=== PATIENT | male | born 1955 | race Caucasian/White ===

== ENCOUNTER 2018-03-12 08:08 | Emergency (ER) | payer BC ==
[2018-03-12] MEDS ORDERED: Lidocaine 2% EPI 1:200000 MPF*10-20 ML VIAL ONE (08:38)
[2018-03-12] MEDS ORDERED: Lidocaine 2% EPI 1:200000 MPF*10-20 ML VIAL INJ ONE (08:38)
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
[2018-03-12] MEDS ORDERED: Gelfoam 12-7 ADSORBABL SPONGE* 1 EA SPONGE ONE (08:46)
[2018-03-12 08:48] LABS: ABS Basophils 0 10^3/ul (0-0.2); ABS Eosinophils 0.1 10^3/ul (0-0.6); ABS Lymphocytes 1.6 10^3/ul (1.0-4.8); ABS Monocytes 0.8 10^3/ul (0-0.8); ABS Neutrophils 4.8 10^3/ul (1.5-7.7); ABS Nucleated RBC 0 10^3/ul; Eosinophil % 0.8 % (0-6); Hematocrit 41 % (42-52); Hemoglobin 14.1 g/dl (14.0-18.0); Lymphocyte % 21.7 % (25-47); Mean Corpuscular HGB Conc 35 g/dl (31-36); Mean Corpuscular Hemoglobin 33 pg (27-31); Mean Corpuscular Volume 95 fL (80-94); Mean Platelet Volume 7.2 um3 (7.4-10.4); Nucleated Red Blood Cells % 0; Platelet Count 177 10^3/ul (150-450); Red Blood Count 4.27 10^6/ul (4.00-5.40); Red Cell Distribution Width 13 % (10.5-15); White Blood Count 7.2 10^3/ul (3.5-10.8)
--- NOTE | 2018-03-12 09:07 | RAD ---
HISTORY: hematemesis COMPARISONS: None VIEWS: 1: frontal AP view of the chest at 8:50 AM FINDINGS: LINES AND TUBES: None. CARDIOMEDIASTINAL SILHOUETTE: The cardiomediastinal silhouette is normal for portable technique. PLEURA: The costophrenic angles are sharp. No pleural abnormalities are noted. LUNG PARENCHYMA: The lungs are clear. ABDOMEN: The upper abdomen is clear. There is no subphrenic gas. BONES AND SOFT TISSUES: There is remote posttraumatic deformity to the left hemithorax. IMPRESSION: NO ACTIVE CARDIOPULMONARY DISEASE.
[2018-03-12 09:25] LABS: INR 5.82 (0.77-1.02)
[2018-03-12 09:35] LABS: EGFR Non-African American 113.5 (>60)
[2018-03-12 10:03] VITALS: BP 168/92
== END 2018-03-12 10:03 | disposition home or self-care (01) ==
LOC: ED 08:08
DX: S01.511A Laceration without foreign body of lip, initial encounter (principal); W50.3XXA Accidental bite by another person, initial encounter; Y92.9 Unspecified place or not applicable; J44.9 Chronic obstructive pulmonary disease, unspecified; R79.1 Abnormal coagulation profile; I45.10 Unspecified right bundle-branch block; T45.515A Adverse effect of anticoagulants, initial encounter
CPT/HCPCS: 12011; 36415; 71045; 80053; 85025; 85610; 86850; 86900; 86901; 93005; 99282; A9270-GY

== ENCOUNTER 2018-05-06 17:21 | Emergency (ER) | payer BC ==
--- OUTSIDE RECORDS SUMMARY | 2018-05-06 17:36 | XMS REPORT | Continuity of Care Document ---
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 Payers Description No Information Available Advance Directives Description No Information Available Problems Description No Information Family History Description No Information Available Social History Type Date Description Comments Sex Unknown ETOH Use Never used alcohol Tobacco Use Start: Unknown Patient has never smoked Smoking Status Reviewed: 05/04/18 Patient has never smoked Allergies, Adverse Reactions, Alerts Date Description Reaction Status Severity Comments 05/04/2018 Nexium Active Medications Medication Date Status Form Strength Qnty SIG Indications Ordering Provider Cinda 05/04/20 Active Gel 0.15% 5gm apply to Ramo 18 ocular Tejada, OD surface 5x/day x 1 week right eye Pred Forte 05/04/20 Active Suspension 1% 10ml 1 drops Ramo 18 right eye Tejada, OD four times a day x 1 week, then taper as directed Valtrex 00/00/ Active Tablets 1gm 1 tablet by Unknown 00 mouth two times a day Immunizations Description No Information Available Vital Signs Description No Information Available Results Description No Information Available Procedures Description No Information Available Encounters Description No Information Available Plan of Treatment Future Appointment(s):05/07/2018 11:30 am - Ramo Tejada OD at Main [id number] - Ramo Tejada [id number] Zoster keratitisFollow up:3 days f/u, sooner PRN
--- NOTE | 2018-05-06 19:26 | ED ---
Skin Complaint - HPI Summary HPI Summary: This patient is a 63 year old M presenting to [facility] with a chief complaint of increasing pain due to his shingles on the right side of his face. Pt states he was seen at and optometry 3 days ago for his shingles and received eye drops and medication that he has been taking since. The patient rates the pain 8/10 in severity. Pt states he is having bloody nasal discharge when blowing his nose and is concerned that his shingles may be spreading into the left side of his face. He denies any visual changes. He when to the today for the increasing pain and they suggested he come to the ED. He is unsure what oral medication he is taking but he is taking Zirgan and prednisone acetate drops into the eye. - History of Current Complaint Chief Complaint: EDRashSkinAbscess Time Seen by Provider: 05/06/18 19:12 Stated Complaint: POSS SHINGLES Hx Obtained From: Patient Onset/Duration: Started Days Ago, Still Present Skin Exposure Onset/Duration: Days Ago Timing: Constant Onset Severity: Moderate Current Severity: Severe Pain Intensity: 8 Pain Scale Used: 0-10 Numeric Skin Location: Face Associated Signs & Symptoms: Negative - visual changes - Allergy/Home Medications Allergies/Adverse Reactions: Allergies Allergy/AdvReac Type Severity Reaction Status Date / Time esomeprazole [From Nexium] Allergy Dizziness Verified 05/06/18 17:25 PMH/Surg Hx/FS Hx/Imm Hx Respiratory History: Reports: Hx Chronic Obstructive Pulmonary Disease (COPD) Musculoskeletal History: Reports: Other Musculoskeletal History - herniated disc Sensory History: Denies: Hx Deafness Neurological History: Reports: Other Neuro Impairments/Disorders - Narcolepsy and shingles - Surgical History Surgery Procedure, Year, and Place: hip replacement, skull fracture, shoulder repair Infectious Disease History: No Infectious Disease History: Denies: Traveled Outside the [place] in Last 30 Days - Family History Known Family History: Positive: Diabetes Negative: Hypertension - Social History Alcohol Use: None Substance Use Type: Reports: None Hx Tobacco Use: No Smoking Status (MU): Unknown if Ever Smoked Review of Systems Negative: Blurred Vision ENT: Other - bloody d/c Positive: Other - shingles All Other Systems Reviewed And Are Negative: Yes Physical Exam - Summary Physical Exam Summary: VITAL SIGNS: Reviewed. GENERAL: Patient is a well-developed and nourished male who is lying comfortable in the stretcher. Patient is not in any acute respiratory distress. HEAD AND FACE: No signs of trauma. No ecchymosis, hematomas or skull depressions. No sinus tenderness. EYES: PERRLA, EOMI x 2, No injected conjunctiva, no nystagmus. EARS: Hearing grossly intact. Ear canals and tympanic membranes are within normal limits. MOUTH: Oropharynx within normal limits. NECK: Supple, trachea is midline, no adenopathy, no JVD, no carotid bruit, no c- spine tenderness, neck with full ROM. CHEST: Symmetric, no tenderness at palpation LUNGS: Clear to auscultation bilaterally. No wheezing or crackles. CVS: Regular rate and rhythm, S1 and S2 present, no murmurs or gallops appreciated. ABDOMEN: Soft, non-tender. No signs of distention. No rebound no guarding, and no masses palpated. Bowel sounds are normal. EXTREMITIES: FROM in all major joints, no edema, no cyanosis or clubbing. NEURO: Alert and oriented x 3. No acute neurological deficits. Speech is normal and follows commands. SKIN: there is a vesicular rash on the right side of the face and the right forehead as well as on the eye lid. It is not spreading in to the conjunctiva or the cornea. Triage Information Reviewed: Yes Vital Signs On Initial Exam: Initial Vitals Temp Pulse Resp BP Pulse Ox 98.3 F 108 16 118/78 92 05/06/18 17:25 05/06/18 17:25 05/06/18 17:25 05/06/18 17:25 05/06/18 17:25 Vital Signs Reviewed: Yes Diagnostics - Vital Signs Vital Signs Temp Pulse Resp BP Pulse Ox 05/06/18 17:25 98.3 F 108 16 118/78 92 - Laboratory Lab Statement: Any lab studies that have been ordered have been reviewed, and results considered in the medical decision making process. Course/Dx - Course Assessment/Plan: This patient is a 63 year old M presenting to [facility] with a chief complaint of increasing pain due to his shingles on the right side of his face. Dx shingles. In the ED course the patient was given Valtrex, gabapentin , and Percocet. The patient reports decreased pain with these medications. We discussed patient care with Dr Acevedo and he suggested Neurontin and Percocet for pain. He also stated that in there is no corneal or conjunctival involvement the patient would not benefit from IV valacyclovir. He suggested the patient see him in his office in the morning. Patient will be discharged. The patient is agreeable with this plan. - Diagnoses Provider Diagnoses: Shingles - Physician Notifications Discussed Care Of Patient With: Jerome Acevedo Time Discussed With Above Provider: 19:47 Instructed by Provider To: Other - We discussed patient care with Dr Acevedo and he suggested Neurontin and Percocet for pain. He also stated that in there is no corneal or conjunctival involvement the patient would not benefit from IV valacyclovir. He suggested the patient see him in his office in the morning. Discharge - Sign-Out/Discharge Documenting (check all that apply): Patient Departure - Discharge Plan Condition: Stable Disposition: HOME Prescriptions: Gabapentin CAP(*) [Neurontin 300 CAP(*)] 300 mg PO TID #30 cap oxyCODONE/Acetamin 5/325 MG* [Percocet 5/325 TAB*] 1 tab PO Q6H PRN #20 tab MDD 4 PRN Reason: Pain Patient Education Materials: Jenny (ED) Referrals: Jerome Acevedo MD [Medical Doctor] - Adolfo Wooten MD [Primary Care Provider] - Additional Instructions: Continue taking the medications you have prescribed. Please contact Dr. Acevedo at 8 AM tomorrow. RETURN TO THE EMERGENCY DEPARTMENT FOR CHANGING OR WORSENING SYMPTOMS - Attestation Statements Document Initiated by Scribe: Yes Documenting Scribe: Jas Redman Provider For Whom Scribe is Documenting (Include Credential): Xochitl Burrows MD Scribe Attestation: I, Jas Redman , scribed for Xochitl Burrows MD on 05/06/18 at 7018. Status of Scribe Document: Ready
[2018-05-06] MEDS ORDERED: oxyCODONE/Acetamin 5/325 MG* TAB PO ONE (19:28)
[2018-05-06] MEDS ORDERED: ValACYclovir (*) 1 GM TAB PO ONE (19:45)
[2018-05-06] MEDS ORDERED: Gabapentin CAP(*) 300 MG PO ONE (19:45)
[2018-05-06 22:06] VITALS: BP 126/78
== END 2018-05-06 22:05 | disposition home or self-care (01) ==
LOC: ED 17:21
DX: B02.9 Zoster without complications (principal); J44.9 Chronic obstructive pulmonary disease, unspecified
CPT/HCPCS: 99282; A9270-GY

== ENCOUNTER 2018-06-04 17:31 | Emergency (ER) | payer BC ==
--- OUTSIDE RECORDS SUMMARY | 2018-06-04 17:39 | XMS REPORT | Continuity of Care Document ---
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 Payers Type Date Identification Numbers Payment Provider Subscriber Policy Number: [id number] CHAUNCEY/ROSALINO Lima Anastasiia Drummond PayID: [id number] [address] [address] [place]que [address] Advance Directives Description No Information Available Problems Description No Information Family History Date Family Member(s) Problem(s) Comments General Glasses Father Diabetes Mother Glasses Mother Cancer Mother Diabetes Social History Type Date Description Comments Sex Unknown ETOH Use Never used alcohol Tobacco Use Start: Unknown Patient has never smoked Smoking Status Reviewed: 05/21/18 Patient has never smoked Allergies, Adverse Reactions, Alerts Date Description Reaction Status Severity Comments 05/04/2018 Nexium Active Medications Medication Date Status Form Strength Qnty SIG Indications Ordering Provider Cinda 05/04/ Active Gel 0.15% 5gm apply to 2017 ocular Tejada, OD surface 5x/day x 1 week right eye Pred Forte 05/04/ Active Suspension 1% 10ml 1 drops 2017 right eye Tejada, OD four times a day x 1 week, then taper as directed Gabapentin / Active Capsules 300mg Unknown 0000 Oxycodone-Acet / Active Tablets 5-325mg Unknown aminophen 0000 Azithromycin / Active Tablets 250mg Unknown 0000 Valtrex 05/11/ Hx Tablets 1gm 14tabs 1 tablet Jerome 2017 - by mouth Kristina 05/21/ two times M.D. 2018 a day x 1 week Valtrex / Hx Tablets 1gm 1 tablet Unknown 0000 - by mouth 05/11/ two times 2018 a day Immunizations Description No Information Available Vital Signs Date Vital Result Comment 05/11/2018 3:30pm Intraocular Pressure Right Eye 15 mmHg 05/07/2018 3:42pm Intraocular Pressure Right Eye 15 mmHg 05/04/2018 11:50am Intraocular Pressure Right Eye 16 mmHg Results Description No Information Available Procedures Date Code Description Status 05/04/2018 75752 Eye Exam New Intermediate Completed Encounters Type Date Location Provider Dx Diagnosis Office Visit 05/11/2018 3:00p Main Office Ramo Tejada, OD B02.33 Zoster keratitis Office Visit 05/07/2018 3:30p Main Office Ramo Tejada, OD B02.33 Zoster keratitis Plan of Treatment Future Appointment(s):06/04/2018 9:15 am - Ramo Tejada, OD at Main [id number] - Ramo Tejada [id number] Zoster keratitisFollow up:2 weeks f/u
--- OUTSIDE RECORDS SUMMARY | 2018-06-04 17:39 | XMS REPORT | Continuity of Care Document ---
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 Payers Type Date Identification Numbers Payment Provider Subscriber Policy Number: [id number] CHAUNCEY/ JAVI Lima Anastasiia Drummond PayID: [id number] [address] [address] [place] [address] Advance Directives Description No Information Available Problems Description No Information Family History Date Family Member(s) Problem(s) Comments General Glasses Father Diabetes Mother Glasses Mother Cancer Mother Diabetes Social History Type Date Description Comments Sex Unknown ETOH Use Never used alcohol Tobacco Use Start: Unknown Patient has never smoked Smoking Status Reviewed: 06/04/18 Patient has never smoked Allergies, Adverse Reactions, Alerts Date Description Reaction Status Severity Comments 05/04/2018 Nexium Active Medications Medication Date Status Form Strength Qnty SIG Indications Ordering Provider Pred Forte 05/04/ Active Suspension 1% 10ml 1 drops 2017 right eye Tejada, OD four times a day x 1 week, then taper as directed Gabapentin / Active Capsules 300mg Unknown 0000 Oxycodone-Acet / Active Tablets 5-325mg Unknown aminophen 0000 Azithromycin / Active Tablets 250mg Unknown 0000 Valtrex 05/11/ Hx Tablets 1gm 14tabs 1 tablet Jerome 2017 - by mouth Kristina, 05/21/ two times M.D. 2018 a day x 1 week Zirgan 05/04/ Hx Gel 0.15% 5gm apply to 2017 - ocular Tejada, OD surface 2018 5x/day x 1 week right eye Valtrex / Hx Tablets 1gm 1 tablet [...] Available Procedures Date Code Description Status 05/04/2018 16391 Eye Exam New Intermediate Completed Encounters Type Date Location Provider Dx Diagnosis Office Visit 05/21/2018 11:00a Main Office Ramo Tejada, OD B02.33 Zoster keratitis Office Visit 05/11/2018 3:00p Main Office Ramo Tejada, OD B02.33 Zoster keratitis Office Visit 05/07/2018 3:30p Main Office Ramo Tejada, OD B02.33 Zoster keratitis Plan of Treatment No Information Available
--- OUTSIDE RECORDS SUMMARY | 2018-06-04 17:39 | XMS REPORT | Continuity of Care Document ---
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 Payers Type Date Identification Numbers Payment Provider Subscriber Policy Number: [id number] CHAUNCEY/ JAVI Lima Anastasiia Drummond PayID: [id number] [address] [address] [place] [address] Advance Directives Description No Information Available Problems [...] apply to 2017 - ocular Tejada, OD 2018 5x/day x 1 week right eye [...] Available Procedures Date Code Description Status 05/04/2018 98285 Eye Exam New Intermediate Completed Encounters Type Date Location Provider Dx Diagnosis Office Visit 05/11/2018 3:00p Main Office Ramo Tejada, OD B02.33 Zoster keratitis Office Visit 05/07/2018 3:30p Main Office Ramo Tejada, OD B02.33 Zoster keratitis Plan of Treatment Future Appointment(s):06/04/2018 9:15 am - Ramo Tejada OD at Main [id number] - Ramo Tejada [id number] Zoster keratitisFollow up:2 weeks f/u
--- OUTSIDE RECORDS SUMMARY | 2018-06-04 17:39 | XMS REPORT | Continuity of Care Document ---
:1955 External Reference #:[id number] Author Name Vargas, Yumiko Care Team Providers Name Role Phone Sanjuana Oneill M.D. Primary Care Physician Unavailable Payers Type Date Identification Numbers Payment Provider Subscriber Policy Number: [id number] [facility] Claire Drummond PayID: [id number] [address] [address] [place] [address] Advance Directives Type Date Description Status Comment Other Directive 05/23/2018 Health Care Proxy Current and Verified Problems Date Description Provider Status Onset: 06/01/2018 Post-infective bronchiectasis Khari Lozano, Rosalba Alcaraz,FACP Onset: 09/26/2017 Mixed hyperlipidemia Adolfo Wooten M.D. Active Onset: 09/26/2017 Gastroesophageal reflux disease Adolfo Wooten M.D. Active Onset: 09/26/2017 Cataplexy and narcolepsy Adolfo Wooten M.D. Active Onset: 09/26/2017 Chronic obstructive lung disease Adolfo Wooten M.D. Active Onset: 09/26/2017 Obesity Adolfo Wooten M.D. Active Onset: 12/08/2017 Deep venous thrombosis of lower Adolfo Wooten M.D. Active extremity Onset: 12/08/2017 Allergic rhinitis Adolfo Wooten M.D. Active Onset: 12/08/2017 Asthma without status asthmaticus Adolfo Wooten M.D. Resolved Resolved: 12/08/2017 Onset: 09/26/2017 Acute upper respiratory infection, Adolfo Wooten M.D. Resolved unspecified Resolved: 12/08/2017 Family History Date Family Member(s) Problem(s) Comments Father Diabetes Type II Father due to Operative () - CEA/Stroke Complications Mother Diabetes Type II Siblings 1 Social History Type Date Description Comments Sex Unknown Marital Status Occupation Retired [employer] Tobacco Use Start: Unknown Never Smoked Cigarettes Smoking Status Reviewed: 06/01/18 Never Smoked Cigarettes ETOH Use Denies alcohol use Tobacco Use Start: Unknown Patient has never smoked Recreational Drug Use Denies Drug Use Allergies, Adverse Reactions, Alerts Date Description Reaction Status Severity Comments 09/26/2017 Nexium nausea Active Medications Medication Date Status Form Strength Qnty SIG Indications Ordering Provider Doxycycline 06/01 Active Tablets 100mg 14tab 1 by mouth Khari Hyclate s twice a day Fidel Lozano M.D.,FACP Lyrica 05/25 Active Capsules 75mg 60cap one po bid s MD Mai Oxycodone HCL 05/25 Active Tablets 5mg 30tab 1 tab by s mouth every 6 Oneill, hours as MD needed for pain Amitriptyline 05/22 Active Tablets 25mg 90tab one by mouth Sanjuana HCL s in the Oneill, evening, increase by one tablet weekly, as needed for pain Tessalon 05/17 Active Capsules 100mg 30cap 1 cap three R05 Perles s times a day Oneill, as needed for MD cough Shingrix 12/28 Active Suspension 50mcg 2unit 0.5 Rec s milliliters Sugar tapia M.D. now and 2-3 months later repeat Proair HFA 12/08 Active Aerosol 108(90Bas 8.5un 2 puffs ih J45.909 e) its every 4 hours Pachika mcg/Act as needed Kieran Montelukast 12/08 Active Tablets 10mg 90tab once daily J30.9 Adolfo s Kieran Wooten Ritalin Active Tablets 20mg 75tab one and one Khari / s half tab in Fidel Lozano, the morning Kieran,FACEl and one tab in the afternoon as needed. mdd 2.5 Rosuvastatin Active Tablets 20mg 90tab 1 by mouth Khari Calcium /0000 s every day Fidel Lozano M.D.,FACP Protonix Active Tablets DR 40mg 90tab 1 tab by Khari s mouth every Fidel Lozano, day Kieran,FACP Coumadin Active Tablets 5mg 90tab 1 by mouth Khari s every at Fidel Lozano, night or as M.D.,FACP prescribed by md office Advair Diskus Active Aerosol 100-50mcg 180un inhale one - /Dose its puff by mouth Fidel Lozano, twice a day M.DAlonso,FACP Valacyclovir Active Tablets 1gm 1 tablet by Unknown HCL mouth twice daily for 1 week. Zithromax 05/09 Hx Tablets 250mg 6tabs take by mouth R05 Zsofia as package Darrell, - inert [employer] 05/17 Gabapentin Hx Capsules 300mg 30cap 1 by mouth Sanjuana s three times a Oneill, - day 05/25 Oxycodone-Acet Hx Tablets 5-325mg Unknown aminophen - 05/17 Prednisolone Hx Suspension 1% 1 gtts in the Unknown Acetate P-F right eye - four times 06/01 daily taper as directed. Zirgan Hx Gel 0.15% Unknown - 06/01 Immunizations CPT Code Status Date Vaccine Lot # [id number] Given 03/14/2018 Tdap - Tetanus/Diptheria/Acellular Pertussis [id number] Given 03/14/2018 Influenza Virus Vaccine, Quadrivalent, Split, [id number] Preservative Free Vital Signs Date Vital Result Comment 06/01/2018 1:24pm Height 70 inches 5'10" Weight 256.00 lb Heart Rate 114 /min BP Systolic Sitting 130 mmHg BP Diastolic Sitting 88 mmHg Body Temperature 97.7 F O2 % BldC Oximetry 94 % BMI (Body Mass Index) 36.7 kg/m2 05/17/2018 8:32am Height 70 inches 5'10" Weight 248.00 lb Heart Rate 90 /min BP Systolic 102 mmHg BP Diastolic 82 mmHg Body Temperature 97.4 F O2 % BldC Oximetry 92 % BMI (Body Mass Index) 35.6 kg/m2 05/09/2018 3:04pm Height 70 inches 5'10" Weight 253.25 lb Heart Rate 99 /min BP Systolic Sitting 122 mmHg BP Diastolic Sitting 82 mmHg Body Temperature 99.0 F O2 % BldC Oximetry 93 % BMI (Body Mass Index) 36.3 kg/m2 03/14/2018 10:49am Height 70 inches 5'10" Weight 254.38 lb Heart Rate 92 /min BP Systolic Sitting 110 mmHg BP Diastolic Sitting 98 mmHg Body Temperature 97.6 F O2 % BldC Oximetry 92 % BMI (Body Mass Index) 36.5 kg/m2 12/08/2017 8:06am Height 70 inches 5'10" Weight 261.12 lb Heart Rate 88 /min BP Systolic Sitting 142 mmHg BP Diastolic Sitting 88 mmHg O2 % BldC Oximetry 95 % BMI (Body Mass Index) 37.5 kg/m2 09/26/2017 10:49am Height 70 inches 5'10" Weight 264.00 lb Heart Rate 96 /min BP Systolic 130 mmHg BP Diastolic 80 mmHg O2 % BldC Oximetry 95 % BMI (Body Mass Index) 37.9 kg/m2 Results Test Date Facility Test Result H/L Range Note Protime W/ Inr 06/01/2018 [facility] Prothrombin Time 16.6 Inr 1.4 Basic Metabolic Panel 05/18/2018 [facility] Sodium 137 mmol/L N 135-[address] [place] [address] [phone] Potassium 4.2 mmol/L N 3.5-5.0 Chloride 102 mmol/L N 101-111 Co2 Carbon Dioxide 28 mmol/L N 22-32 Anion Gap 7 mmol/L N 2-11 Glucose 141 mg/dL High 70-100 Blood Urea Nitrogen 16 mg/dL N 6-24 Creatinine 0.78 mg/dL N 0.67-1.17 BUN/Creatinine Ratio 20.5 High 8-20 Calcium 9.4 mg/dL N 8.6-10.3 Egfr Non- 100.2 >60 Egfr 121.3 >60 1 CBC Auto Diff 05/18/2018 [facility] White Blood 7.3 10^3/uL N 3.5-10.[address] [place] [address] [phone] Red Blood Count 4.55 10^6/uL N 4.00-5.40 Hemoglobin 15.2 g/dL N 14.0-18.0 Hematocrit 44 % N 42-52 Mean Corpuscular Volume 97 fL High 80-94 Mean Corpuscular Hemoglobin 33 pg High 27-31 Mean Corpuscular HGB Conc 35 g/dL N 31-36 Red Cell Distribution Width 14 % N 10.5-15 Platelet Count 238 10^3/uL N 150-450 Mean Platelet Volume 7.3 fL Low 7.4-10.4 Abs Neutrophils 4.4 10^3/uL N 1.5-7.7 Abs Lymphocytes 1.9 10^3/uL N 1.0-4.8 Abs Monocytes 0.9 10^3/uL High 0-0.8 Abs Eosinophils 0.1 10^3/uL N 0-0.6 Abs Basophils 0.1 10^3/uL N 0-0.2 Abs Nucleated RBC 0 10^3/uL Granulocyte % 59.7 % Lymphocyte % 26.5 % Monocyte % 12.0 % Eosinophil % 0.8 % Basophil % 1.0 % Nucleated Red Blood Cells % 0.1 Quantiferon 05/18/2018 [facility] QuantiFERON-Tb Negative Negative 2 Gold TB [address] [place] [address] [phone] TB1 Ag minus Nil Result 0.01 IU/mL TB2 Ag minus Nil Result 0 IU/mL TB Mitogen minus Nil Result 7.69 IU/mL TB Nil Result 0.03 IU/mL 3 Laboratory test 05/18/2018 [facility] C Reactive 1.99 mg/L N < 8.[address] [place] [address] [phone] Protime W/ Inr 04/25/2018 [facility] Prothrombin Time 32.2 Inr 2.6 Protime W/ Inr 03/28/2018 [facility] Prothrombin Time 35.9 Inr 2.9 Protime W/ Inr 03/21/2018 [facility] Prothrombin Time 35.7 Inr 2.9 Protime W/ Inr 03/14/2018 [facility] Prothrombin Time 22.1 Inr 1.8 Protime W/ Inr 03/09/2018 [facility] Prothrombin Time 54.0 Inr 4.4 Protime W/ Inr 02/08/2018 [facility] Prothrombin Time 34.4 Inr 2.8 Protime W/ Inr 01/17/2018 [facility] Prothrombin Time 21.0 Inr 1.7 Protime W/ Inr 2018 [facility] Prothrombin Time 21.7 Inr 1.8 Protime W/ Inr 12/28/2017 [facility] Prothrombin Time 18.1 Inr 1.5 Protime W/ Inr 12/08/2017 [facility] Prothrombin Time 21.9 Inr 1.8 Lipid Profile 10/03/2017 [facility] Triglycerides 178 mg/dL 4, 5 (Trig/Chol/HDL) [address] [place] [address] [phone] Cholesterol 143 mg/dL 6 HDL Cholesterol 50.0 mg/dL 7 LDL Cholesterol 57 mg/dL 8 1 Because ethnic data is not always readily available, this report includes an eGFR for both -Americans and non- Americans. The National Kidney Disease Education Program (NKDEP) does not endorse the use of the MDRD equation for patients that are not between the ages of 18 and 70, are , have extremes of body size, muscle mass, or nutritional status, or are non- or non-. According to the National Kidney Foundation, irrespective of diagnosis, the stage of the disease is based on the level of kidney function: Stage Description GFR(mL/min/1.73 m(2)) 1 Kidney damage with normal or decreased GFR 90 2 Kidney damage with mild decrease in GFR 60-89 3 Moderate decrease in GFR 30-59 4 Severe decrease in GFR 15-29 5 Kidney failure <15 (or dialysis) 2 No interferon-gamma response to M. tuberculosis antigens was detected. Infection with M. tuberculosis is unlikely. A single negative result does not exclude infection with M. tuberculosis. In patients at high risk for M.tuberculosis infection, a second test should be considered in accordance with the 2017 ATS/IDSA/CDC Clinical Practice Guidelines for Diagnosis of Tuberculosis in Adults and Children [Lewinsohn DM et. al. Clin. Infect. Dis. 2017;64(2):111-115]. 3 Test Performed by: [facility] [address] [place] [address] 4 FASTING 5 Desirable: <150 Borderline High: 150-199 High: 200-499 Very High: >500 6 Desirable: <200 Borderline High: 200-239 High: >239 7 Low: <40 Desirable: 40-60 High: >60 8 Desirable: <100 Near Optimal: 100-129 Borderline High: 130-159 High: 160-189 Very High: >189 Procedures Date Code Description Status 06/05/2016 89097817 Colonoscopy Completed Encounters Type Date Location Provider Dx Diagnosis Office Visit 05/17/2018 [facility] Internal Sanjuana Oneill MD B02.9 Zoster without 8:40a Medicine - [address] R05 Cough B02.29 Other postherpetic nervous system involvement R91.1 Solitary pulmonary nodule Office Visit 05/09/2018 3:20p [facility] Internal Medicine - Jenaro Ramírez [employer] R[address] B02.9 Zoster without complications Office Visit 03/14/2018 [facility] Internal Khari Parra 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 Begin taking Doxycycline 2x daily until completed. Complete pulmonary function test as discussed. Advised following up with health concierge in the future.I82.411 Acute embolism and thrombosis of right femoral veinComments:Anticoagulation is not on target. We will recheck in 1 week. Continue taking Coumadin 1.5 tab 1x nightly.Z79.01 senior living (current) use of anticoagulantsComments:I will continue prescribing Coumadin at this time.
--- OUTSIDE RECORDS SUMMARY | 2018-06-04 17:40 | XMS REPORT | Continuity of Care Document ---
:1955 External Reference #:[id number] Author Name Sindi Gonzalez Care Team Providers Name Role Phone Adolfo Wooten MD Primary Care Physician Unavailable Payers Type Date Identification Numbers Payment Provider Subscriber Policy Number: [id number] [facility] Claire Drummond PayID: [id number] [address] [address] [place] [address] Advance Directives Description No Information Available Problems Date Description Provider Status Onset: 09/26/2017 Mixed hyperlipidemia Adolfo Wooten M.D. [...] Member(s) Problem(s) Comments Father Diabetes Type II Mother Diabetes Type II Social History Type Date Description Comments Sex Unknown ETOH Use Denies alcohol use Tobacco Use Start: Unknown Patient has never smoked Recreational Drug Use Denies Drug Use Smoking Status Reviewed: 05/09/18 Patient has never smoked Allergies, Adverse Reactions, Alerts Date Description Reaction Status Severity Comments 09/26/2017 Nexium nausea Active Medications Medication Date Status Form Strength Qnty SIG Indications Ordering Provider Zithromax 05/09 Active Tablets 250mg 6tabs take by mouth R05 Zsofia Z- as package Darrell, inert [employer] Shingrix 12/28 Active Suspension 50mcg 2unit 0.5 Rec s milliliters Pachikara intramuscular Kieran now and 2-3 months later repeat Proair HFA 12/08 Active Aerosol 108(90Bas 8.5un 2 puffs ih J45.909 e) its every 4 hours Pachikara mcg/Act as needed , Kieran Montelukast 12/08 Active Tablets 10mg 90tab once daily J30.9 Adolfo s Kieran Wooten Ritalin Active Tablets 20mg 75tab one and one Khari /0000 s half tab in Fidel Lozano, the morning M.DAlonso,CELI and one tab in the afternoon as needed. mdd 2.5 Rosuvastatin Active Tablets 20mg 90tab 1 by mouth Khari Calcium /0000 s every day Fidel Lozano M.D.,FACP Protonix Active Tablets DR 40mg 90tab 1 tab by mouth Khari /0000 s every day Fidel Lozano M.D.,FACP Coumadin Active Tablets 5mg 90tab 1 by mouth Khari /0000 s every at night Fidel Lozano, or as Kieran,FACP prescribed by md office Advair Diskus Active Aerosol 100-50mcg 180un inhale one Rojas- Yonis /0000 /Dose its puff by mouth Fidel Lozano, twice a day Kieran,FACP Gabapentin Active Capsules 300mg 1 by mouth Unknown /0000 three times a day Oxycodone-Shalom Active Tablets 5-325mg Unknown taminophen /0000 Prednisolone Active Suspension 1% Unknown Acetate P-F 0000 Zirgan Active Gel 0.15% Unknown /0000 Valacyclovir Active Tablets Unknown HCL /0000 Immunizations CPT Code Status Date Vaccine Lot # [id number] Given 03/14/2018 Tdap - Tetanus/Diptheria/Acellular Pertussis [id number] Given 03/14/2018 Influenza Virus Vaccine, Quadrivalent, Split, [id number] Preservative Free Vital Signs Date Vital Result Comment 05/09/2018 3:04pm Height 70 inches 5'10" Weight [...] Result H/L Range Note Protime W/ Inr 04/25/2018 [facility] Prothrombin Time 32.2 Inr 2.6 Protime W/ Inr 03/28/2018 [facility] Prothrombin Time 35.9 Inr 2.9 Protime W/ Inr 03/21/2018 [facility] Prothrombin Time 35.7 Inr 2.9 Protime W/ Inr 03/14/2018 [facility] Prothrombin Time 22.1 Inr 1.8 Protime W/ Inr 03/09/2018 [facility] Prothrombin Time 54.0 Inr 4.4 Protime W/ Inr 02/08/2018 [facility] Prothrombin Time 34.4 Inr 2.8 Protime W/ Inr 01/17/2018 [facility] Prothrombin Time 21.0 Inr 1.7 Protime W/ Inr 2018 [facility] Prothrombin Time 21.7 Inr 1.8 Protime W/ Inr 12/28/2017 [facility] Prothrombin Time 18.1 Inr 1.5 Protime W/ Inr 12/08/2017 [facility] Prothrombin Time 21.9 Inr 1.8 Lipid Profile 10/03/2017 [facility] Triglycerides 178 mg/dL 1, 2 (Trig/Chol/HDL) [address] [place] [address] [phone] Cholesterol 143 mg/dL 3 HDL Cholesterol 50.0 mg/dL 4 LDL Cholesterol 57 mg/dL 5 1 FASTING 2 Desirable: <150 Borderline High: 150-199 High: 200-499 Very High: >500 3 Desirable: <200 Borderline High: 200-239 High: >239 4 Low: <40 Desirable: 40-60 High: >60 5 Desirable: <100 Near Optimal: 100-129 Borderline High: 130-159 High: 160-189 Very High: >189 Procedures Date Code Description Status 06/05/2016 [id number] Colonoscopy Completed Encounters Type Date Location Provider Dx Diagnosis Office Visit 03/14/2018 [facility] Internal Khari Parra M51.16 Intervertebral disc 10:40a Medicine Heather Lozano M.D.,FACP disorders w Rd radiculopathy, lumbar region I82.411 Acute embolism and thrombosis of right femoral vein Z79.01 intermediate (current) use of anticoagulants A69.20 Lyme disease, unspecified Z23 Encounter for immunization Office Visit 12/08/2017 [facility] Internal Adolfo E78.2 Mixed hyperlipidemia 8:20a Elise Wooten M.D. 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 I recommend topical treatments: chadd, licorice, honey, cough dropsI am sending Rx for an antibioticsTake it as instructed and have a yoghurt daily to void GI upsetPlease call if symptoms no better in 3-4 daysFollow up:1 weekB02.9 Zoster without complicationsComments:For your shingles you are already taking an antiviral medication, this may fasten the resolution of the outbreak, however you still may have the pain/itching associated with the infection.You are also on gabapentin and pain medicationsNew vesicles may appear for up to 21 days. You may also had lesionsin your RT nostril.Continue on pain medication for painCool compresses and calamine lotion may also help. if you experience pain in the affected area after the rash resolved please call the office. Please follow up with Dr. Acevedo
--- OUTSIDE RECORDS SUMMARY | 2018-06-04 17:40 | XMS REPORT | Continuity of Care Document ---
:1955 External Reference #:[id number] Author Name Ramo Tejada, OD Address [address] [place] [address] Care Team Providers Name Role Phone Ramo Tejada OD Care Team Information Damascener Unavailable Payers Type Date Identification Numbers Payment Provider Subscriber Policy Number: [id number] CHAUNCEY/ JAVI Lima Anastasiia Drummond PayID: [id number] [address] [address] [place] [address] Advance Directives Description No Information Available Problems Description No Information Family History Date Family Member(s) Problem(s) Comments General Glasses Father Diabetes Mother Glasses Mother Cancer Mother Diabetes Social History Type Date Description Comments Sex Unknown ETOH Use Never used alcohol Tobacco Use Start: Unknown Patient has never smoked Smoking Status Reviewed: 05/11/18 Patient has never smoked Allergies, Adverse Reactions, Alerts Date Description Reaction Status Severity Comments 05/04/2018 Nexium Active Medications Medication Date Status Form Strength Qnty SIG Indications Ordering Provider Valtrex 05/11/ Active Tablets 1gm 14tabs 1 tablet Jreome 2017 by mouth Kristina two times M.D. 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
--- OUTSIDE RECORDS SUMMARY | 2018-06-04 17:40 | XMS REPORT | Continuity of Care Document ---
:1955 External Reference #:[id number] Author Name Radha Parker Care Team Providers Name Role Phone Sanjuana Oneill M.D. Primary Care Physician Unavailable Payers Type Date Identification Numbers Payment Provider Subscriber Policy Number: [id number] [facility] Claire Drummond PayID: [id number] [address] [address] [place] [address] Advance Directives Description No Information Available Problems Date Description Provider Status Onset: 09/26/2017 Mixed hyperlipidemia Adlofo Wooten M.D. Active Onset: 09/26/2017 Gastroesophageal reflux [...] Use Denies Drug Use Smoking Status Reviewed: 05/17/18 Patient has never smoked Allergies, Adverse Reactions, Alerts Date Description Reaction Status Severity Comments 09/26/2017 Nexium nausea Active Medications Medication Date Status Form Strength Qnty SIG Indications Ordering Provider Tesayo 05/17 Active Capsules 100mg 30cap 1 cap three R05 s times a day as Oneill, needed for cough Shingrix 12/28 Active Suspension 50mcg 2unit 0.5 Rec s milliliters Sugar tapia M.D. now and 2-3 months later repeat Proair HFA 12/08 Active Aerosol 108(90Bas 8.5un 2 puffs ih J45.909 e) its every 4 hours Shaeikara mcg/Act as needed , Kieran Montelukast 12/08 Active Tablets 10mg 90tab once daily J30.9 s Kieran Wooten Ritalin Active Tablets 20mg 75tab one and one Khari / s half tab in Fidel Lozano, the morning M.DAlonso,CELI and one tab in the afternoon as needed. mdd 2.5 Rosuvastatin Active Tablets 20mg 90tab 1 by mouth Khari Calcium / s every day Fidel Lozano M.D.,FACP Protonix Active Tablets DR 40mg 90tab 1 tab by mouth Khari /0000 s every day Fidel Lozano M.D.,FACP Coumadin Active Tablets 5mg 90tab 1 by mouth Khari /0000 s every at night Fidel Lozano, or as Kieran,CELI prescribed by office Advair Diskus Active Aerosol 100-50mcg 180un inhale one Rojas- /Dose its puff by mouth Fidel Lozano, twice a day Kieran,FIDENCIOP Gabapentin Active Capsules 300mg 30cap 1 by mouth Sanjuana s three times a Oneill, day Prednisolone Active Suspension 1% 1 gtts in the Unknown Acetate P-F right eye four times daily then taper as directed. Zirgan Active Gel 0.15% Unknown /0000 Valacyclovir Active Tablets 1gm 1 tablet by Unknown HCL /0000 mouth twice daily for 1 week. 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 05/17 Oxycodone-Shalom Hx Tablets 5-325mg Unknown taminophen /0000 - 05/17 Immunizations CPT Code Status Date Vaccine Lot # [id number] Given 03/14/2018 Tdap - Tetanus/Diptheria/Acellular Pertussis [id number] Given 03/14/2018 Influenza Virus Vaccine, Quadrivalent, Split, [id number] Preservative Free Vital Signs Date Vital Result Comment 05/17/2018 8:32am Height 70 inches 5'10" Weight [...] H/L Range Note Protime W/ Inr 04/25/2018 [facility] In House Prothrombin Time 32.2 Inr 2.6 Protime W/ Inr 03/28/2018 [facility] In House Prothrombin Time 35.9 Inr 2.9 Protime W/ Inr 03/21/2018 [facility] In House Prothrombin Time 35.7 Inr 2.9 Protime W/ Inr 03/14/2018 [facility] In House Prothrombin Time 22.1 Inr 1.8 Protime W/ Inr 03/09/2018 [facility] In House Prothrombin Time 54.0 Inr 4.4 Protime W/ Inr 02/08/2018 Tr[facility] In House Prothrombin Time 34.4 Inr 2.8 Protime W/ Inr 01/17/2018 [facility] In House Prothrombin Time 21.0 Inr 1.7 Protime W/ Inr 2018 Trim [facility] In House Prothrombin Time 21.7 Inr 1.8 Protime W/ Inr 12/28/2017 [facility] In House Prothrombin Time 18.1 Inr 1.5 Protime W/ Inr 12/08/2017 Tr[facility] In House Prothrombin Time 21.9 Inr 1.8 Lipid Profile 10/03/2017 [facility] Triglycerides 178 mg/dL 1, 2 (Trig/Chol/HDL) [address] [place] [address] [phone] Cholesterol 143 mg/dL 3 HDL Cholesterol 50.0 mg/dL 4 LDL Cholesterol 57 mg/dL 5 1 FASTING 2 Desirable: <150 Borderline High: 150-199 High: 200-499 Very High: >500 3 Desirable: <200 Borderline High: 200-239 High: >239 4 Low: <40 Desirable: 40-60 High: >60 5 Desirable: <100 Near Optimal: 100-129 Borderline High: 130-159 High: 160-189 Very High: >189 Procedures Date Code Description Status 06/05/2016 09957732 Colonoscopy Completed Encounters Type Date Location Provider Dx Diagnosis Office Visit 05/09/2018 3:20p [facility] VALENCIA Webb R05 Cough - [address] B02.9 Zoster without complications Office Visit 03/14/2018 [facility] Khari Parra 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 They can be taken up to 3 timesin a day and her nondrowsy and nonaddictive. I will call you if the results of the x-ray show pneumonia to discuss the proper treatment. If it is normal, we will treat her for bronchitis with a steroid. TheB02.29 Other postherpetic nervous system involvementComments:Gabapentin is for nerve pain from the shingles. You can take it during the day but some people feellittle drowsy when they take it. It is not an addictive medication so you can take it as long as needed. If you run out and still has pain you can call for refill.
--- OUTSIDE RECORDS SUMMARY | 2018-06-04 17:40 | XMS REPORT | Continuity of Care Document ---
:1955 External Reference #:[id number] Demographics Mobile Phone [phone] Preferred Language en Marital Status Not or Episcopalian Affiliation Unknown Race White Ethnic Group Not or Author Name Ramo Tejada, OD [facility] [address] [place] [address] Care Team Providers Name Role Phone Ramo Tejada, KODY Care Team Information Export Coordinator Unavailable Payers Description No Information Available Advance Directives Description No Information Available Problems Description No Information Family History Description No Information Available Social History Type Date Description Comments Sex Unknown ETOH Use Never used alcohol Tobacco Use Start: Unknown Patient has never smoked Smoking Status Reviewed: 05/07/18 Patient has never smoked Allergies, Adverse Reactions, [...] 1 week, then taper as directed Valtrex 00/00/00 Active Tablets 1gm 1 tablet by Unknown 00 mouth two times a day Immunizations Description No Information Available Vital Signs Date Vital Result Comment 05/04/2018 11:50am Intraocular Pressure Right Eye 16 mmHg Results Description No Information Available Procedures Date Code Description Status 05/07/2018 28678 Eye Exam Est Intermediate Completed 05/04/2018 76456 Eye Exam New Intermediate Completed Encounters Description No Information Available Plan of Treatment No Information Available
[2018-06-04] MEDS ORDERED: Magnesium CITRATE* 300 ML BTL PO ONE (18:52)
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
[2018-06-04 19:29] LABS: Urine Appearance Clear; Urine Bilirubin Negative (Negative); Urine Blood Negative (Negative); Urine Color Yellow; Urine Glucose Negative (Negative); Urine Ketones Negative (Negative); Urine Nitrite Negative (Negative); Urine Protein Negative (Negative); Urine Specific Gravity 1.008 (1.010-1.030); Urine Urobilinogen Negative (Negative)
[2018-06-04 21:54] VITALS: BP 159/87
== END 2018-06-04 21:53 | disposition home or self-care (01) ==
LOC: ED 17:31
DX: R33.9 Retention of urine, unspecified (principal); K59.00 Constipation, unspecified; Z88.8 Allergy status to other drugs, medicaments and biological substances; Z96.649 Presence of unspecified artificial hip joint
CPT/HCPCS: 51702; 74018; 81003; 99283; A9270-GY

== ENCOUNTER 2018-06-11 08:35 | Inpatient (IN) | payer BC ==
[2018-06-11] MEDS ORDERED: cefTRIAXone(*) 1 GM in NS 0.9% 50 ML* 50 ML IVPB ONE (09:04)
[2018-06-11] MEDS ORDERED: NS 0.9% 1000 ML* 2,000 ML IV ONE (09:04)
[2018-06-11] MEDS ORDERED: Adenosine* 3 MG/ML VIAL IV PUSH ONE ×2 (09:04→09:43)
[2018-06-11 09:05] LABS: ABS Basophils 0 10^3/ul (0-0.2); ABS Eosinophils 0 10^3/ul (0-0.6); ABS Lymphocytes 0.2 10^3/ul (1.0-4.8); ABS Monocytes 0 10^3/ul (0-0.8); ABS Neutrophils 7.6 10^3/ul (1.5-7.7); ABS Nucleated RBC 0 10^3/ul; Eosinophil % 0.2 %; Hematocrit 46 % (42-52); Hemoglobin 15.4 g/dl (14.0-18.0); Lymphocyte % 2.8 %; Mean Corpuscular HGB Conc 34 g/dl (31-36); Mean Corpuscular Hemoglobin 33 pg (27-31); Mean Corpuscular Volume 96 fL (80-94); Mean Platelet Volume 6.9 fL (7.4-10.4); Nucleated Red Blood Cells % 0; Platelet Count 184 10^3/ul (150-450); Red Blood Count 4.72 10^6/ul (4.00-5.40); Red Cell Distribution Width 14 % (10.5-15); White Blood Count 7.9 10^3/ul (3.5-10.8)
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
[2018-06-11] MEDS ORDERED: Acetaminophen TAB* 325 MG PO ONE (09:08)
[2018-06-11] MEDS ORDERED: Adenosine* 3 MG/ML VIAL ONE (09:11)
[2018-06-11 09:21] LABS: INR 1.87 (0.77-1.02)
[2018-06-11 09:23] LABS: Albumin 4.3 g/dL (3.2-5.2); Albumin/Globulin Ratio 1.5 (1-3); Calcium 9.2 mg/dL (8.6-10.3); EGFR African American 116.1 (>60); EGFR Non-African American 95.9 (>60); Globulin 2.8 g/dL (2-4); Potassium 3.5 mmol/L (3.5-5.0); Total Bilirubin 1.3 mg/dL (0.2-1.0); Total Protein 7.1 g/dL (6.4-8.9)
[2018-06-11 09:25] LABS: Troponin I 0.04 ng/mL (<0.04)
[2018-06-11] MEDS ORDERED: NS 0.9% IV ONE (10:29)
[2018-06-11 10:31] LABS: Urine Appearance Cloudy; Urine Bacteria Absent (Absent); Urine Bilirubin Negative (Negative); Urine Blood 3+ (Negative); Urine Color Yellow; Urine Glucose Negative (Negative); Urine Ketones Negative (Negative); Urine Nitrite Negative (Negative); Urine Protein Negative (Negative); Urine Red Blood Cell 3+(>10/hpf) (Absent); Urine Specific Gravity 1.006 (1.010-1.030); Urine Urobilinogen Negative (Negative); Urine White Blood Cell 1+(6-10/hpf) (Absent)
[2018-06-11 11:46] LABS: Magnesium 1.4 mg/dL (1.9-2.7)
[2018-06-11 12:06] LABS: TSH (Thyroid Stimulating Horm) 0.61 mcIU/mL (0.34-5.60)
[2018-06-11] MEDS ORDERED: Magnesium Sulfate IV* 3 GM in NS 0.9% 100 ML* 100 ML IVPB ONE (12:08)
[2018-06-11] MEDS ORDERED: oxyCODONE/Acetamin 5/325 MG* TAB PO PRN (12:09)
[2018-06-11] MEDS ORDERED: Albuterol 2.5 MG/3 ML NEB.SOL* (0.083%) INH PRN (12:09)
[2018-06-11] MEDS ORDERED: NS 0.9% 1000 ML* 1,000 ML IV SCH (12:15)
[2018-06-11] MEDS ORDERED: Potassium Chlor TAB* 20 MEQ TAB.ER PO ONE (12:19)
[2018-06-11] MEDS ORDERED: Perflutren Lipid Microsphere* 3 ML VIAL ONE (14:05)
[2018-06-11 14:25] LABS: Influenza A Molecular NEGATIVE (Negative); Influenza B Molecular NEGATIVE (Negative)
--- NOTE | 2018-06-11 15:23 | ECHO ---
Patient: MERRICK WARNER [facility] Rec#: [id number] : 1955 Date: 06/11/2018 Age: 63y Height: 175 cm / 68.9 in Weight: 113 kg / 249.1 lbs Sex: M BSA: 2.27 Room#: -4 Admit Date#: 06/11/2018 Type: Inpatient Referring: Madalyn Carson Reading: Eddi Santos MD Supervisor Glycerin: Aniyah Schaeffer RDCS CC: Sanjuana Oneill MD Transthoracic Echocardiogram Indication: Abn EKG BP: 104/71 HR: 98 Rhythm: NSR Findings History: COPD,PCI,Junctional tachy,obesity. Technical Comments: The study is technically limited due to patient body habitus. Definity used to enhance images. The study is technically limited due to the patient's history of COPD. Completed at 1445. Left Ventricle: The left ventricular chamber size is normal. Global left ventricular wall motion and contractility are within normal limits. There is normal left ventricular systolic function. The estimated ejection fraction is 55-60%. Abnormal left ventricular diastolic function is observed. Left Atrium: The left atrial chamber size is normal. Right Ventricle: The right ventricle is not well visualized. Right Atrium: The right atrium is not well visualized. Aortic Valve: The aortic valve is trileaflet. There is no evidence of aortic regurgitation. There is no evidence of aortic stenosis. Mitral Valve: The mitral valve leaflets are mildly thickened. There is a trace of mitral regurgitation. There is no evidence of mitral stenosis. Tricuspid Valve: The tricuspid valve leaflets are normal. There is trace tricuspid regurgitation. Unable to estimate the right ventricular systolic pressure. There is no tricuspid stenosis. Pulmonic Valve: The pulmonic valve appears normal. There is no evidence of pulmonic regurgitation. There is no pulmonic stenosis. Pericardium: A pericardial fat pad is visualized. Aorta: There is mild dilatation of the ascending aorta. There is no dilatation of the aortic arch. There is mild dilatation of the aortic root. Pulmonary Artery: The main pulmonary artery is not well visualized. Venous: The venous system is not well visualized. Contrast: Definity was used to optimize study. A total of 3.5ml used. Intravenous contrast was used to enhance endocardial border definition. Summary: There was not any prior study for comparison. Conclusions Global left ventricular wall motion and contractility are within normal limits. There is normal left ventricular systolic function. The estimated ejection fraction is 55-60%. There is no evidence of aortic stenosis. There is a trace of mitral regurgitation. There is trace tricuspid regurgitation. Unable to estimate the right ventricular systolic pressure. Measurements Name Value Normal Range RVIDd (AP) 2D 4.3 cm (0.9 - 2.6) IVSd (2D) 0.9 cm (0.6 - 1) LVPWd (2D) 0.9 cm (0.6 - 1) LVIDd (2D) 4.4 cm (3.6 - 5.4) LVIDs (2D) 2.4 cm - LV FS (2D) 45 % (25 - 45) Aortic Annulus 2.4 cm (1.4 - 2.6) Ao root diameter (2D) 3.7 cm (2.1 - 3.5) Ascending Ao 3.5 cm (2.1 - 3.4) Aortic arch 2.9 cm (1.8 - 3.4) Descending Ao 0.7 cm - LA dimension (AP) 2D 3.7 cm (2.3 - 3.8) Name Value Normal Range MV E-wave Vmax 0.5 m/sec - MV deceleration time 158 msec - MV A-wave Vmax 0.8 m/sec - MV E:A ratio 0.6 ratio - Name Value Normal Range AV Vmax 0.9 m/sec - AV VTI 17.5 cm - AV peak gradient 3 mmHg - AV mean gradient 2 mmHg - LVOT Vmax 0.7 m/sec - LVOT VTI 14.2 cm - LVOT peak gradient 2 mmHg - LVOT mean gradient 1 mmHg - Name Value Normal Range TR Vmax 1.7 m/sec - TR peak gradient 12 mmHg - RAP 8 mmHg - RVSP 20 mmHg - Name Value Normal Range PV Vmax 0.5 m/sec - PV peak gradient 1 mmHg -
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
[2018-06-11] MEDS ORDERED: Polyethylene Glycol 3350* 17 GM PACKET PO PRN (19:07)
[2018-06-11 19:14] LABS: Hematocrit 40 % (42-52); Hemoglobin 13.4 g/dl (14.0-18.0)
[2018-06-11] MEDS: Mometasone/Formoter 100/5 MDI INH SCH (20:23)
[2018-06-11] MEDS: Acetaminophen TAB* 325 MG PO PRN (20:32)
[2018-06-12] MEDS: Acetaminophen TAB* 325 MG PO PRN ×4 (03:04→22:41)
[2018-06-12] MEDS: Mometasone/Formoter 100/5 MDI INH SCH ×2 (07:32→19:27)
[2018-06-12] MEDS: Montelukast Sodium TAB* 10 MG PO SCH (08:48)
[2018-06-12] MEDS: Pantoprazole TAB * 40 MG TAB PO SCH (08:49)
[2018-06-12] MEDS: PTO:Alfuzosin ER (NF) 10 MG TAB.ER PO SCH (08:49)
[2018-06-12] MEDS: Atorvastatin* 10 MG TAB PO SCH (08:49)
[2018-06-12] MEDS: cefTRIAXone(*) 1 GM in NS 0.9% 50 ML* 50 ML IVPB SCH (08:49)
[2018-06-12 10:24] LABS: ABS Basophils 0 10^3/ul (0-0.2); ABS Eosinophils 0 10^3/ul (0-0.6); ABS Lymphocytes 0.5 10^3/ul (1.0-4.8); ABS Monocytes 0.5 10^3/ul (0-0.8); ABS Neutrophils 8.6 10^3/ul (1.5-7.7); ABS Nucleated RBC 0 10^3/ul; Eosinophil % 0.1 %; Hematocrit 43 % (42-52); Hemoglobin 14.5 g/dl (14.0-18.0); Lymphocyte % 5.2 %; Mean Corpuscular HGB Conc 34 g/dl (31-36); Mean Corpuscular Hemoglobin 33 pg (27-31); Mean Corpuscular Volume 96 fL (80-94); Mean Platelet Volume 7.3 fL (7.4-10.4); Nucleated Red Blood Cells % 0.1; Platelet Count 138 10^3/ul (150-450); Red Blood Count 4.44 10^6/ul (4.00-5.40); Red Cell Distribution Width 14 % (10.5-15); White Blood Count 9.6 10^3/ul (3.5-10.8)
[2018-06-12 10:28] LABS: INR 1.52 (0.77-1.02)
[2018-06-12 10:44] LABS: Troponin I 0.03 ng/mL (<0.04)
[2018-06-12 10:46] LABS: BUN/Creatinine Ratio 13.2 (8-20); Calcium 8.5 mg/dL (8.6-10.3); EGFR African American 142.1 (>60); EGFR Non-African American 117.4 (>60); HDL Cholesterol 46.2 mg/dL
[2018-06-12] MEDS ORDERED: Iohexol 300* (CONTRAST) 10 ML SDV IV ONE (12:05)
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
[2018-06-12] MEDS: Ampicillin ADVAN(*) 1 GM in NS 0.9% 50 ML* 50 ML IVPB SCH ×2 (17:59→22:42)
[2018-06-13] MEDS: Ampicillin ADVAN(*) 1 GM in NS 0.9% 50 ML* 50 ML IVPB SCH ×4 (04:39→22:31)
[2018-06-13] MEDS: Atorvastatin* 10 MG TAB PO SCH (08:30)
[2018-06-13] MEDS: Pantoprazole TAB * 40 MG TAB PO SCH (08:30)
[2018-06-13] MEDS: PTO:Alfuzosin ER (NF) 10 MG TAB.ER PO SCH (08:30)
[2018-06-13] MEDS: cefTRIAXone(*) 1 GM in NS 0.9% 50 ML* 50 ML IVPB SCH (08:30)
[2018-06-13] MEDS: Montelukast Sodium TAB* 10 MG PO SCH (08:30)
[2018-06-13] MEDS: Mometasone/Formoter 100/5 MDI INH SCH ×2 (09:11→20:29)
--- NOTE | 2018-06-13 14:18 | PN ---
Subjective Date of Service: 06/13/18 Interval History: Patient seen and examined. States he is still feeling weak with chills, had low grade temps overnight, but not over 101. Abdominal tenderness improving. Shaw remains in place. No SOB, no chest pain, no further complaints. Son at bedside. Discussed bacteria in urine extensively. Son requests a call for any change in status. Objective Active Medications: Acetaminophen (Tylenol Tab*) 650 mg PO Q4H PRN PRN Reason: FEVER/PAIN Last Admin: 06/12/18 22:41 Dose: 650 mg Albuterol (Ventolin 2.5 Mg/3 Ml Neb.Yaa*) 2.5 mg INH RT.[id number] AWAKE PRN PRN Reason: sob/wheezing Alfuzosin HCl (Uroxatral (Nf)) 10 mg PO DAILY [facility] Last Admin: 06/13/18 08:30 Dose: 10 mg Atorvastatin Calcium (Lipitor*) 10 mg PO DAILY [facility]; Protocol Last Admin: 06/13/18 08:30 Dose: 10 mg Ceftriaxone Sodium 1 gm/ (Sodium Chloride) 50 mls @ 200 mls/hr IVPB 0900 APARNA Last Admin: 06/13/18 08:30 Dose: 200 mls/hr Ampicillin Sodium 1 gm/ Sodium (Chloride) 50 mls @ 200 mls/hr IVPB Q6H [facility] Last Admin: 06/13/18 11:04 Dose: 200 mls/hr Mometasone Furoate/Formoterol Fumar (Dulera 100/5 Mdi*) 1 puff INH BID [facility] Last Admin: 06/13/18 09:11 Dose: Not Given Montelukast Sodium (Singulair Tab*) 10 mg PO DAILY [facility] Last Admin: 06/13/18 08:30 Dose: 10 mg Oxycodone/Acetaminophen (Percocet 5/325 Tab*) 1 tab PO Q6H PRN PRN Reason: Pain Pantoprazole Sodium (Protonix Tab *) 40 mg PO DAILY [facility] Last Admin: 06/13/18 08:30 Dose: 40 mg Polyethylene Glycol/Electrolytes (Miralax*) 17 gm PO DAILY PRN PRN Reason: CONSTIPATION Last Admin: 06/11/18 20:27 Dose: 17 gm Vital Signs - 8 hr 06/13/18 06/13/18 07:27 11:04 Temperature 99.4 F 97.8 F Pulse Rate 99 95 Respiratory 16 16 Rate Blood Pressure 142/94 141/77 (mmHg) O2 Sat by Pulse 94 93 Oximetry Oxygen Devices in Use Now: None Appearance: alert, OOB to chair, NAD Eyes: No Scleral Icterus, PERRLA Ears/Nose/Mouth/Throat: NL Teeth, Lips, Gums, Mucous Membranes Moist Neck: NL Appearance and Movements; NL JVP, Trachea Midline Respiratory: Symmetrical Chest Expansion and Respiratory Effort, Clear to Auscultation Cardiovascular: NL Sounds; No Murmurs; No JVD, RRR, No Edema Abdominal: - - mildly tender to LLQ and suprapubic regions, no distension Extremities: No Edema, No Clubbing, Cyanosis Skin: No Rash or Ulcers, No Nodules or Sclerosis Lines/Tubes/Other Access: Clean, Dry and Intact Shaw - clear yellow urine Nutrition: Taking PO's Result Diagrams: 06/12/18 10:00 06/12/18 10:00 Microbiology and Other Data: Microbiology 06/11/18 10:07 Urine Culture - Preliminary Urine Escherichia Coli Enterococcus Faecalis 06/11/18 13:55 Nasal Screen MRSA (PCR) - Final Nasal Mrsa Not Detected Influenza Types A,B Antigen - Final Specimen received for Influenza A/B Molecular testing Diagnostic Imaging: Patient Name: MERRICK WARNER Medical Record#: [id number] Ordering Physician: Farheen Reyes NP Acct.#: [id number] : 1955 Age: 63 Sex: M Location: [address] [place] [address] - MEDICAL/TELEMETRY Exam Date: 06/12/181133 ADM Status: ADM Alanna Order Information: CT ABD/PEL W Accession Number: [id number] CPT: 22402 INDICATION: Abdominal pain and fever. COMPARISON: There are no relevant prior studies available for comparison. TECHNIQUE: A CT scan of the abdomen and pelvis was performed with intravenous and with oral contrast following intravenous injection of 150 ml of Omnipaque 300 nonionic contrast. Contiguous axial sections were obtained from the lung bases through the symphysis pubis. Images were reconstructed in the coronal and sagittal planes. FINDINGS: LUNG BASES: There is mild dependent bilateral lower lobe subsegmental atelectasis. No pleural effusion is present. LIVER: The liver is decreased in attenuation consistent with fatty infiltration. No significant focal abnormality is seen. GALLBLADDER: The patient is status post cholecystectomy. BILE DUCTS: No intra or extrahepatic ductal distention is seen. SPLEEN: The spleen is normal in size without significant focal abnormality. PANCREAS: The pancreas is normal in size. No ductal distention or calcifications are seen. ADRENAL GLANDS: The adrenal glands are normal in size. KIDNEYS: The kidneys are normal in size. No renal calculi or hydronephrosis is seen. There are several small bilateral renal cysts. AORTA: The aorta is normal in caliber without significant calcific plaque. There is a filter in the infrarenal inferior vena cava. LYMPH NODES: No significantly enlarged lymph nodes are seen. BOWEL: There is a small hiatal hernia. The stomach, small and large bowel appear nondistended. The appendix is not visualized. There is no evidence for diverticulitis or colitis. There is a periumbilical hernia containing fat. PELVIC ORGANS: There is a catheter within the urinary bladder and several small bubbles of air. There is diffuse bladder wall thickening and stranding in the adjacent fat suggesting the possibility of cystitis. The prostate gland is enlarged measuring 4.5 cm in transverse dimension. PERITONEUM: No free intraperitoneal air or fluid is seen. BONES: The patient appears to be status post repair of fractures of the proximal left femur, left acetabulum and left iliac bone. There are chronic appearing mild to moderate compression fractures of the L2 and L3 vertebral bodies. There are several old left posterior rib fractures. IMPRESSION: 1. THERE IS DIFFUSE THICKENING OF THE WALL OF THE URINARY BLADDER WITH ADJACENT INTERSTITIAL STRANDING SUGGESTING THE POSSIBILITY OF CYSTITIS. THERE IS A CATHETER IN PLACE. RECOMMEND CLINICAL CORRELATION. 2. HEPATIC STEATOSIS. 3. STATUS POST CHOLECYSTECTOMY. 4. INFERIOR VENA CAVA FILTER IN PLACE. Assess/Plan/Problems-Billing Assessment: This is a 63 year old male patient that presented to ED with urethral trauma, tachycardia, fever and now complains of abdominal pain. - Patient Problems (1) Abdominal pain Code(s): R10.9 - UNSPECIFIED ABDOMINAL PAIN SNOMED Code(s): 03886628 Comment: - CT abdomen as above, no obstruction or infectious GI process - Pain is likely related to complicated UTI and is slowly improving (2) Fever Code(s): R50.9 - FEVER, UNSPECIFIED SNOMED Code(s): 588660005 Comment: - GI source ruled out, likely all related to complex UTI with ecoli and enterococcus - Continue tylenol PRN - On ceftriaxone and ampicillin, pending full susceptibilities (3) Urethral trauma Code(s): S37.30XA - UNSPECIFIED INJURY OF URETHRA, INITIAL ENCOUNTER SNOMED Code(s): 38762481 Comment: - History of retention, continue atbx - Shaw reinserted, hematuria resolving (4) SVT (supraventricular tachycardia) Code(s): I47.1 - SUPRAVENTRICULAR TACHYCARDIA SNOMED Code(s): 8243273 Comment: - Resolved in ED with adenosine - Likely r/t stress of pulling out shaw - Mild bump in trops also likely 2/2 SVT and demand, patient has NO chest pain and no acute ST segment changes on last EKG - Continue to monitor on tele (5) DVT (deep venous thrombosis) Code(s): I82.409 - ACUTE EMBOLISM AND THOMBOS UNSP DEEP VN UNSP LOWER EXTREMITY SNOMED Code(s): 182299648 Comment: - Coumadin held for hematuria which seems resolved - Will restart coumadin, patient has old IVC filter, unclear if patent (6) Full code status Code(s): Z78.9 - OTHER SPECIFIED HEALTH STATUS SNOMED Code(s): 595257707 Status and Disposition: Inpatient for IV atbx, anticipate DC to home in 1-2 days on appropriate atbx therapy.
[2018-06-13] MEDS ORDERED: Warfarin TAB(*) 7.5 MG PO SCH (17:00)
[2018-06-14] MEDS: Ampicillin ADVAN(*) 1 GM in NS 0.9% 50 ML* 50 ML IVPB SCH (04:33)
[2018-06-14] MEDS: Mometasone/Formoter 100/5 MDI INH SCH (07:20)
[2018-06-14] MEDS: Atorvastatin* 10 MG TAB PO SCH (08:56)
[2018-06-14] MEDS: Montelukast Sodium TAB* 10 MG PO SCH (08:56)
[2018-06-14] MEDS: PTO:Alfuzosin ER (NF) 10 MG TAB.ER PO SCH (08:56)
[2018-06-14] MEDS: Pantoprazole TAB * 40 MG TAB PO SCH (08:57)
[2018-06-14] MEDS: cefTRIAXone(*) 1 GM in NS 0.9% 50 ML* 50 ML IVPB SCH (08:57)
[2018-06-14] MEDS ORDERED: Levofloxacin TAB* 500 MG PO SCH (10:00)
[2018-06-14 11:28] VITALS: BP 117/77
--- NOTE | 2018-06-14 20:08 | DS ---
CC: Dr. Oneill; Dr. Vieyra * DISCHARGE SUMMARY: DATE OF ADMISSION: 06/13/18 DATE OF DISCHARGE: 06/14/18 PRIMARY CARE PROVIDER: Dr. Sanjuana Oneill. UROLOGIST: Dr. Vieyra. ATTENDING FOR THIS ADMISSION: Dr. Arleen Goodman. MY ATTENDING FOR TODAY: Dr. Zheng.* (DICTATED BY GENE GRIMALDO NP) HOSPITAL COURSE: Please refer to admission H and P dated 06/11/18 by Madalyn Carson NP, but in short, this is a pleasant 63-year-old male patient who presented to the emergency department with report of chills and tachycardia. The patient reported that he also started having some lower abdominal pain after his Livingston catheter at home was removed; however, we found out later that the patient actually removed his own Livingston catheter without deflating the balloon to secure the device. The patient was found to be in rapid heart rate, which appeared to be a transient supraventricular tachycardia. It was narrow complex in the emergency department. He was treated with adenosine at 6 mg, 12 mg and 12 mg. His rate did break at that point. Post adenosine EKG showed regular sinus rhythm. The patient was sent for echocardiogram and also urinalysis. Urinalysis revealed likely UTI, also had a significant amount of blood in the urine and urinary retention. The Livingston was reinserted. He had a significant amount of hematuria and then also began having fevers. At that time , the patient received IV fluids, echocardiogram. His troponin was mildly elevated; however, without chest pain, it was likely related to demand ischemia in the setting of tachycardia and usage of adenosine. The rest of his laboratories were essentially unremarkable. He did have an elevated lactic acid , was treated with sepsis protocol, repeat lactic was 1.5. The patient remained with persistent fevers, chills, and sweats. His urine culture did grow out E. Coli and Enterococcus. E. Coli had several factors in resistance as well as the Enterococcus. Initially, the patient was treated with ceftriaxone and ampicillin. When full susceptibilities were returned, the patient was then placed on Levaquin, which he tolerated today. The patient has remained fever free for 24 hours, his vital signs are stable, he has had no more tachycardia, and the patient was ready for discharge to home. DISCHARGE DIAGNOSES: 1. Weakness and dizziness secondary to supraventricular tachycardia and sepsis. 2. Urinary tract infection with E. Coli and Enterococcus. 3. Elevated troponin secondary to demand ischemia. 4. Hematuria secondary to urethral trauma. 5. History of gastroesophageal reflux disease, stable. 6. Hypomagnesemia, which was corrected in the emergency department. 7. Hyperlipidemia, on statin. 8. History of deep venous thrombosis in the past, on Coumadin. 9. History of coronary artery disease, status post stent placement in the past. 10. History of chronic obstructive pulmonary disease. 11. History of attention deficit disorder. DISCHARGE MEDICATIONS: Include: 1. Uroxatral 10 mg p.o. daily. 2. Coumadin 7.5 mg p.o. daily, on hold. 3. Protonix 40 mg daily. 4. Ritalin 20 mg p.o. daily. 5. Crestor 5 mg p.o. daily. 6. Montelukast sodium 10 mg p.o. daily. 7. Advair Diskus 1 puff inhaled b.i.d. daily. New medication: 1. Levaquin 500 mg p.o. times an additional 7 days. REVIEW OF SYSTEMS: On the day of discharge, the patient denies any fever, fatigue, or chills. No dizziness. No chest pain, no palpitations, no shortness of breath. No nausea, no vomiting. Some very mild abdominal pain in the suprapubic region, improved. Denies any arthralgias or myalgias and no further constitutional complaints. PHYSICAL EXAMINATION: In general, he is a well-appearing male, appears to be his stated age. Vital signs are blood pressure 117/77, heart rate 98, O2 saturation 94% on room air, temperature of 98.3, respiratory rate of 16. HEENT : The patient is atraumatic, normocephalic. PERRLA with nonicteric sclerae. Oral mucosa is moist. Tongue is midline. Neck is supple and nontender. No JVD noted and no carotid bruits auscultated. Cardiovascular: S1, S2 present. Rate and rhythm are regular. No murmurs, gallops, or rubs noted. Lungs are clear bilaterally to auscultation with no wheezing, rhonchi, or rales. Abdomen is soft, mildly tender in the suprapubic region. Positive bowel sounds in all 4 quadrants. No organomegaly noted. Musculoskeletal: There is no clubbing, no cyanosis, and no edema. He has +2 distal pulses palpable, full range of motion. Gross motor and sensation are intact. : He has a Livingston catheter inserted, draining clear yellow urine. Neurologic: Grossly intact with no focal deficits. Psychiatric: He has a flat affect; however, he is cooperative and appropriate. DIAGNOSTIC STUDIES/LAB DATA: WBCs 9.6, RBCs 4.44, hemoglobin 14.5, hematocrit 43, platelets 138,000. Sodium 134, potassium 4.0, chloride 103, CO2 of 22, BUN 9, creatinine 0.68, GFR 117.4, glucose 158, lactic acid 1.5, calcium 8.5, magnesium 2.0. Triglycerides 95, cholesterol 98, LDL 33, HDL was 46.2. Influenza A and B were negative. Urinalysis showed yellow cloudy urine with 3+ blood, 1+ wbc's, and 3+ rbc's. Microbiology reports in the urine showing E. Coli at 75,000 to 100,000 colonies and Enterococcus at 10,000 to 25,000 colonies. Imaging: CT scan of the abdomen and pelvis dated 06/12/18 reveals: 1. Diffuse thickening of the wall of the urinary bladder with adjacent interstitial stranding suggestive of the possibility of cystitis. There was a catheter in place. Recommend clinical correlation. 2. Hepatic steatosis. 3. Status post cholecystectomy. 4. Inferior vena cava filter in place. Echocardiogram dated 06/11/18. Echo conclusion showed global left ventricular wall motion and contractility are within normal limits. There was normal left ventricular systolic function. EF is 55% to 60%. No evidence of aortic stenosis. Trace mitral regurg, trace tricuspid regurg, and unable to estimate right ventricular systolic pressure. DISPOSITION: The patient was discharged to home in the care of family. All questions were answered. The patient stated his understanding of his discharge instructions, medications, and followups. FOLLOWUPS: Dr. Vieyra. After speaking with Dr. Vieyra's office, the patient is having a planned outpatient cystoscopy on 06/15/18. He is to continue his levofloxacin and follow up with Dr. Vieyra for continued antibiotic management if needed. He was told to hold his Coumadin. The patient's Coumadin was held for the duration of his admission secondary to his hematuria. It should be held now in anticipation of his procedure tomorrow. The patient was also told to follow up with Dr. Sanjuana Oneill, his primary care provider, on an as needed basis after his urologic issues have been resolved. DIET: Heart-healthy, diabetic as tolerated. ACTIVITY: Progress as tolerated. EDUCATION AND TEACHING: The patient was given education regarding Livingston with leg bag. TIME SPENT: 35 minutes coordinating care with the patient, outpatient resources , and hospital staff. GENE GRIMALDO, MAMADOU [id number]/CPS #: [id number] KIRILL
== END 2018-06-14 12:56 | disposition home or self-care (01) | DRG 720 ==
LOC: ED 08:35 → MEDTELE 14:03 → OBSVTOIN 06-13 11:33
PROVIDERS: ADMIT Internal Medicine; ATTEND Nurse Practitioner Adult Health
DX: A41.9 Sepsis, unspecified organism (principal); S37.39XA Other injury of urethra, initial encounter; I47.1 Supraventricular tachycardia; I24.8 Other forms of acute ischemic heart disease; J44.9 Chronic obstructive pulmonary disease, unspecified; X58.XXXA Exposure to other specified factors, initial encounter; K21.9 Gastro-esophageal reflux disease without esophagitis; E11.9 Type 2 diabetes mellitus without complications; I25.10 Atherosclerotic heart disease of native coronary artery without angina pectoris; G47.419 Narcolepsy without cataplexy; E83.42 Hypomagnesemia; K59.00 Constipation, unspecified; B95.2 Enterococcus as the cause of diseases classified elsewhere; K76.0 Fatty (change of) liver, not elsewhere classified; N30.91 Cystitis, unspecified with hematuria; F90.9 Attention-deficit hyperactivity disorder, unspecified type; I08.1 Rheumatic disorders of both mitral and tricuspid valves; Z95.5 Presence of coronary angioplasty implant and graft; Z86.718 Personal history of other venous thrombosis and embolism; Z83.3 Family history of diabetes mellitus; Y92.009 Unspecified place in unspecified non-institutional (private) residence as the place of occurrence of the external cause; Z90.49 Acquired absence of other specified parts of digestive tract; Z88.8 Allergy status to other drugs, medicaments and biological substances
CPT/HCPCS: 36415; 70450; 71045; 74177; 80048; 80053; 80061; 81003; 81015; 83605; 83735; 84443; 84484; 85014; 85018; 85025; 85610; 87077; 87086; 87186; 87641; 93005; 93306; 94640; 99284; A9270-GY; C8929; J0153; J0696; J3475; Q9967

== ENCOUNTER 2018-11-08 08:18 | Emergency (ER) | payer BC ==
[2018-11-08] MEDS ORDERED: Acetaminophen TAB* 325 MG PO ONE (08:55)
--- OUTSIDE RECORDS SUMMARY | 2018-11-08 08:57 | XMS REPORT | Continuity of Care Document ---
:1955 External Reference #:[id number] Author Name Lizzeth Pantoja Care Team Providers Name Role Phone Sanjuana Oneill M.D. Primary Care Physician Unavailable Payers Date Identification Numbers Payment Provider Subscriber Policy Number: [id number] [facility] Claire Warner PayID: [id number] [address] [address] [place] [address] Advance Directives Type Date Description Status Comment Other Directive 05/23/2018 Health Care Proxy Current and Verified Problems Active Problems Provider Date Raised prostate specific antigen Khari Lozano M.D.,FACP Onset: 2018 Post-infective bronchiectasis Khari Lozano M.D.,FACP Onset: 06/01/2018 Mixed hyperlipidemia Adolfo Wooten M.D. Onset: 09/26/2017 Gastroesophageal reflux disease Adolfo Wooten M.D. Onset: 09/26/2017 Cataplexy and narcolepsy Adolfo Wooten M.D. Onset: 09/26/2017 Chronic obstructive lung disease Adolfo Wooten M.D. Onset: 09/26/2017 Obesity Adolfo Wooten M.D. Onset: 09/26/2017 Deep venous thrombosis of lower Adolfo Wooten M.D. Onset: 12/08/2017 extremity Allergic rhinitis Adolfo Wooten M.D. Onset: 12/08/2017 Postherpetic neuralgia Sanjuana Oneill MD Onset: 06/20/2018 Resolved Problems Asthma without status asthmaticus Adolfo Wooten M.D. Onset: 12/08/2017 Resolved: 12/08/2017 Acute upper respiratory infection, Adolfo Wooten M.D. Onset: 09/26/2017 unspecified Resolved: 12/08/2017 Family History Date Family Member(s) Observation Comments Father Diabetes Type II Father due to Operative () - CEA/Stroke Complications Mother Diabetes Type II Siblings 1 Social History Type Date Description Comments Sex Unknown Marital Status moved out 2017, left him "out of the blue" Lives With Son Occupation Retired [employer] Occupation Currently Working [employer] Tobacco Use Start: Unknown Never Smoked Cigarettes Tobacco Use Start: Unknown Secondhand smoke 8 years at [employer] of [employer] Smoking Status Reviewed: 10/16/18 Secondhand smoke 8 years at [employer] ETOH Use Denies alcohol use Tobacco Use Start: Unknown Patient has never smoked Recreational Drug Use Denies Drug Use Exercise Type/Frequency Does not exercise Allergies, Adverse Reactions, Alerts Active Allergies Reaction Severity Comments Date Nexium nausea 09/26/2017 Medications Active Medications SIG Qnty Indications Ordering Date Provider Losartan Potassium 1 by mouth every 30tabs I10 Sanjuana Oneill MD 10/16/2018 day 50mg Tablets Guaifenesin one po tid 90tabs J44.9 Sanjuana Oneill MD 10/16/2018 400mg Tablets Aspirin 81 1 by mouth every Qutaybeh S. 09/10/2018 81mg day Kieran Nolen Tablets Montelukast Sodium once daily 90tabs J30.9 Adolfo 12/08/2017 Kieran Wooten 10mg Tablets Rosuvastatin Calcium 1 by mouth every 90tabs Sanjuana Oneill MD day 20mg Tablets Protonix 1 tab by mouth 90tabs Khari Parra 40mg Tablets every day Kieran Lozano,FACEl VOGEL Coumadin 1 by mouth every 90tabs Sanjuana Oneill MD 5mg Tablets at night or as prescribed by md office Advair Diskus inhale one puff by 180units Khari Parra mouth twice a day Kieran Lozano,FACP 100-50mcg/Dose Aerosol Multivitamin Men take 1 tablet by Unknown mouth one time a Tablets day Vitamin B 12 1 by mouth every Unknown 500mcg day Tablets ER History Medications Doxycycline Hyclate 1 by mouth twice a 14tabs Khari Parra 06/01/2018 - day [facility] 06/15/2018 100mg Tablets Lyrica one po bid 60caps Sanjuana Oneill MD 05/25/2018 - 75mg Capsules 06/15/2018 Oxycodone HCL 1 tab by mouth 30tabs Sanjuana Oneill MD 05/25/2018 - 5mg every 6 hours as 06/15/2018 Tablets needed for pain Amitriptyline HCL one by mouth in the 90tabs Sanjuana Oneill MD 05/22/2018 - evening, increase 06/15/2018 25mg Tablets by one tablet weekly, as needed for pain Tessalon Perles 1 cap three times a 30caps R05 Sanjuana Oneill MD 05/17/2018 - 100mg day as needed for 06/15/2018 Capsules cough Zithromax Z-Ethan take by mouth as 6tabs R05 Jenaro Ramírez, 05/09/2018 - 250mg package inert TRANSFER DRIVER 05/17/2018 Tablets Shingrix 0.5 milliliters 2units [place] 12/28/2017 - 50mcg intramuscular now Kieran Wooten 07/15/2018 Suspension Rec and 2-3 months later repeat Proair HFA 2 puffs ih every 4 8.5units J45.90 [place] 12/08/2017 - hours as needed 9 iKeran Wooten 06/15/2018 108(90Base) mcg/Act Aerosol Ritalin one and one half 45tabs Khari Parra - 20mg Tablets tab in the morning Kieran Lozano,FACP 07/15/2018 Gabapentin 1 by mouth three 30caps Sanjuana Oneill MD - 300mg times a day 05/25/2018 Capsules Oxycodone-Acetaminop Unknown - hen 05/17/2018 5-325mg Tablets Prednisolone Acetate 1 gtts in the right Unknown - P-F eye four times 06/01/2018 1% Suspension daily then taper as directed. Zirgan Unknown - 0.15% Gel 06/01/2018 Valacyclovir HCL 1 tablet by mouth Unknown - 1gm twice daily for 1 06/15/2018 Tablets week. Uroxatral one by mouth daily Unknown - 10mg 07/15/2018 Tablets ER 24HR Levaquin 1 by mouth every Unknown - 500mg day for seven more 06/20/2018 Tablets days Gabapentin 1 by mouth three B02.29 Unknown - 300mg times a day as Unknown Capsules needed for pain, and take 2 at bedtime up to 5/day (pt takes 1 am, 1 at noon 2 at hs) Aspirin 1 by mouth one time Unknown - per day 09/11/2018 Immunizations CPT Code Status Date Vaccine Lot # [id number] Given 03/14/2018 Tdap - Tetanus/Diptheria/Acellular Pertussis [id number] Given 03/14/2018 Influenza Virus Vaccine, Quadrivalent, Split, [id number] Preservative Free Vital Signs Date Vital Result Comment 10/16/2018 8:46am Height 68 inches 5'8" Weight 240.00 lb Heart Rate 84 /min BP Systolic Sitting 148 mmHg BP Diastolic Sitting 96 mmHg BMI (Body Mass Index) 36.5 kg/m2 09/11/2018 9:46am Height 68 inches 5'8" Weight 241.25 lb with shoes Heart Rate 80 /min BP Systolic Sitting 144 mmHg ule Large cuff BP Diastolic Sitting 100 mmHg ule Large cuff BMI (Body Mass Index) 36.7 kg/m2 Ejection Fraction 61% Nuclear exercise 07/16/2018 11:55am Height 68 inches 5'8" Weight 240.50 lb Heart Rate 86 /min BP Systolic Sitting 120 mmHg Lue large cuff BP Diastolic Sitting 94 mmHg Lue large cuff Respiratory Rate 16 /min O2 % BldC Oximetry 93 % On Ra BMI (Body Mass Index) 36.6 kg/m2 Neck Circumference in inches 17 07/10/2018 1:45pm Height 68 inches 5'8" Weight 246.12 lb Heart Rate 88 /min BP Systolic Sitting 144 mmHg Left arm BP Diastolic Sitting 100 mmHg Left arm BP Systolic Standing 142 mmHg Left arm BP Diastolic Standing 100 mmHg Left arm BMI (Body Mass Index) 37.4 kg/m2 Ejection Fraction 55-60% Echocardiogram 06/11/18 06/29/2018 1:08pm Height 70 inches 5'10" Weight 253.50 lb Heart Rate 86 /min BP Systolic 136 mmHg BP Diastolic 92 mmHg Body Temperature 97.8 F O2 % BldC Oximetry 94 % BMI (Body Mass Index) 36.4 kg/m2 06/20/2018 11:08am Height 70 inches 5'10" Weight 250.38 lb Heart Rate 107 /min BP Systolic 128 mmHg BP Diastolic 82 mmHg Body Temperature 97.9 F O2 % BldC Oximetry 95 % BMI (Body Mass Index) 35.9 kg/m2 06/01/2018 1:24pm Height 70 inches 5'10" Weight [...] Result H/L Range Note Protime W/ Inr 10/16/2018 [facility] Prothrombin Time 30 Inr 2.5 Protime W/ Inr 10/05/2018 [facility] Prothrombin Time 39.3 Inr 3.3 Protime W/ Inr 09/24/2018 [facility] Prothrombin Time 29.6 Inr 2.5 Protime W/ Inr 09/17/2018 [facility] Prothrombin Time 46.9 Inr 3.8 Protime W/ Inr 09/03/2018 [facility] Prothrombin Time 23.7 Inr 1.9 Protime W/ Inr 08/24/2018 [facility] Prothrombin Time 25.9 Inr 2.1 Laboratory test 08/20/2018 [facility] PSA Screening 1.306 ng/mL 0-4.[address] [place] [address] [phone] Protime W/ Inr 08/17/2018 [facility] Prothrombin Time 49.5 Inr 4.0 Protime W/ Inr 08/09/2018 [facility] Prothrombin Time 55.7 Inr 4.5 Protime W/ Inr 07/26/2018 [facility] Prothrombin Time 17.5 Inr 1.4 Laboratory test 07/06/2018 [facility] PSA Diagnostic 11.357 High 0-4.0 2 finding [address] [facility] ng/[place] [address] [phone] Protime W/ Inr 06/20/2018 [facility] Prothrombin Time 26.7 Inr 2.2 Laboratory test 06/11/2018 [facility] Lactic Acid 1.5 mmol/L N 0.5-2.[address] [place] [address] [phone] Laboratory test 06/11/2018 [facility] Troponin-I 0.05 ng/mL High <0.[address] (TnI) [place] [address] [phone] Urinalysis 06/11/2018 [facility] Urine Color Yellow Profile [address] [place] [address] [phone] Urine Appearance Cloudy Urine Specific [place] 1.006 Low 1.010-1.030 Urine pH 7.0 N 5-9 Urine Urobilinogen Negative Negative Urine Ketones Negative Negative Urine Protein Negative Negative Urine Leukocytes Trace Abnormal Negative Urine Blood 3+ Abnormal Negative Urine Nitrite Negative Negative Urine Bilirubin Negative Negative Urine Glucose Negative Negative Urine White Blood Cell 1+(6-10/hpf) Abnormal Absent Urine Red Blood Cell 3+(>10/hpf) Abnormal Absent Urine Bacteria Absent Absent Urine Culture And 06/11/2018 [facility] Urine Culture SEE RESULT [address] [place] [address] [phone] CBC Auto Diff 06/11/2018 [facility] White Blood 7.9 10^3/uL N 3.5-[address] Count .8 [place] [address] [phone] Red Blood Count 4.72 10^6/uL N 4.00-5.40 Hemoglobin 15.4 g/dL N 14.0-18.0 Hematocrit 46 % N 42-52 Mean Corpuscular Volume 96 fL High 80-94 Mean Corpuscular Hemoglobin 33 pg High 27-31 Mean Corpuscular HGB Conc 34 g/dL N 31-36 Red Cell Distribution Width 14 % N 10.5-15 Platelet Count 184 10^3/uL N 150-450 Mean Platelet Volume 6.9 fL Low 7.4-10.4 Abs Neutrophils 7.6 10^3/uL N 1.5-7.7 Abs Lymphocytes 0.2 10^3/uL Low 1.0-4.8 Abs Monocytes 0 10^3/uL N 0-0.8 Abs Eosinophils 0 10^3/uL N 0-0.6 Abs Basophils 0 10^3/uL N 0-0.2 Abs Nucleated RBC 0 10^3/uL Granulocyte % 96.3 % Lymphocyte % 2.8 % Monocyte % 0.6 % Eosinophil % 0.2 % Basophil % 0.1 % Nucleated Red Blood Cells % 0 Inr/Protime 06/11/2018 [facility] Inr 1.87 High 0.77-1.[address] [place] [address] [phone] Laboratory test 06/11/2018 [facility] Lactic Acid 3.0 High 0.5 -2.0 [address] mmol/[place] [address] [phone] Comp Metabolic 06/11/2018 [facility] Sodium 137 N 135-[address] mmol/[place] [address] [phone] Potassium 3.5 mmol/L N 3.5-5.0 Chloride 103 mmol/L N 101-111 Co2 Carbon Dioxide 23 mmol/L N 22-32 Anion Gap 11 mmol/L N 2-11 Glucose 151 mg/dL High 70-100 Blood Urea Nitrogen 13 mg/dL N 6-24 Creatinine 0.81 mg/dL N 0.67-1.17 BUN/Creatinine Ratio 16.0 N 8-20 Calcium 9.2 mg/dL N 8.6-10.3 Total Protein 7.1 g/dL N 6.4-8.9 Albumin 4.3 g/dL N 3.2-5.2 Globulin 2.8 g/dL N 2-4 Albumin/Globulin Ratio 1.5 N 1-3 Total Bilirubin 1.30 mg/dL High 0.2-1.0 Alkaline Phosphatase 100 U/L N 34-104 Alt 24 U/L N 7-52 Ast 24 U/L N 13-39 Egfr Non- 95.9 >60 Egfr 116.1 >60 7 Laboratory test 06/11/2018 [facility] Troponin-I 0.04 ng/mL High <0.[address] (TnI) [place] [address] [phone] Magnesium 1.4 mg/dL Low 1.9-2.7 TSH (Thyroid Stim Horm) 0.61 mcIU/mL N 0.34-5.60 Urinalysis Profile 06/04/2018 [facility] Urine Color Yellow [address] [place] [address] [phone] Urine Appearance Clear Urine Specific [place] 1.008 Low 1.010-1.030 Urine pH 6.0 N 5-9 Urine Urobilinogen Negative Negative Urine Ketones Negative Negative Urine Protein Negative Negative Urine Leukocytes Negative Negative Urine Blood Negative Negative Urine Nitrite Negative Negative Urine Bilirubin Negative Negative Urine Glucose Negative Negative Protime W/ Inr 06/01/2018 [facility] Prothrombin Time 16.6 Inr 1.4 CBC Auto Diff 05/18/2018 [facility] White Blood 7.3 10^3/uL N 3.5-10.[address] [place] [address] [phone] Red Blood Count 4.55 10^6/uL N 4.00-5.40 [...] Red Blood Cells % 0.1 Quantiferon 05/18/2018 [facility] QuantiFERON-Tb Negative Negative 9 Gold TB [address] [place] [address] [phone] TB1 Ag minus Nil Result 0.01 IU/mL TB2 Ag minus Nil Result 0 IU/mL TB Mitogen minus Nil Result 7.69 IU/mL TB Nil Result 0.03 IU/mL 10 Laboratory test 05/18/2018 [facility] C Reactive 1.99 mg/L N < 8.01 finding [address] [facility] [place] [address] [phone] Basic Metabolic 05/18/2018 [facility] Sodium 137 mmol/L N 135- 145 Panel [address] [place] [address] [phone] Potassium 4.2 mmol/L N 3.5-5.0 Chloride 102 mmol/L N 101-111 Co2 Carbon Dioxide 28 mmol/L N 22-32 Anion Gap 7 mmol/L N 2-11 Glucose 141 mg/dL High 70-100 Blood Urea Nitrogen 16 mg/dL N 6-24 Creatinine 0.78 mg/dL N 0.67-1.17 BUN/Creatinine Ratio 20.5 High 8-20 Calcium 9.4 mg/dL N 8.6-10.3 Egfr Non- 100.2 >60 Egfr 121.3 >60 11 Protime W/ Inr 04/25/2018 [facility] Prothrombin Time 32.2 Inr 2.6 Protime W/ Inr 03/28/2018 [facility] Prothrombin Time 35.9 Inr 2.9 Protime W/ Inr 03/21/2018 [facility] Prothrombin Time 35.7 Inr 2.9 Protime W/ Inr 03/14/2018 [facility] Prothrombin Time 22.1 Inr 1.8 Protime W/ Inr 03/09/2018 [facility] Prothrombin Time 54.0 Inr 4.4 Protime W/ Inr 02/08/2018 [facility] Prothrombin Time 34.4 Inr 2.8 Protime W/ Inr 01/17/2018 [facility] Prothrombin Time 21.0 Inr 1.7 Protime W/ Inr 2018 [facility] Prothrombin Time 21.7 Inr 1.8 Protime W/ Inr 12/28/2017 [facility] Prothrombin Time 18.1 Inr 1.5 Protime W/ Inr 12/08/2017 [facility] Prothrombin Time 21.9 Inr 1.8 Lipid Profile 10/03/2017 [facility] Triglycerides 178 mg/dL 12, 13 (Trig/Chol/HDL) [address] [place] [address] [phone] Cholesterol 143 mg/dL 14 HDL Cholesterol 50.0 mg/dL 15 LDL Cholesterol 57 mg/dL 16 1 Serum levels of PSA measured using the eOriginal DXI Hybritech immunoassay should not be interpreted as absolute evidence of the presence or absence of disease. The PSA value should be used in conjunction with other pertinent clinical diagnostic procedures. The values obtained with different assay methods or kits cannot be used interchangeably. 2 Serum levels of PSA measured using the [employer] DXI Hybritech immunoassay should not be interpreted as absolute evidence of the presence or absence of disease. The PSA value should be used in conjunction with other pertinent clinical diagnostic procedures. The values obtained with different assay methods or kits cannot be used interchangeably. 3 [facility] Severe Sepsis and Septic Shock Management Bundle Measure requires all lactic acids initially measuring >2.0 mmol/L be repeated. 4 Result TnIDx:0.05 Called to [id number] at: 12:17:53 by:[id number] Read back by: [id number] Troponin-I testing on Plasma Separator Tubes (PST) has a known false positive rate of 0.20-0.40%. All positive troponins reflex immediate secondary confirmatory testing. 5 SEE RESULT BELOW Name: CLAIRE WARNER : [address]: Arleen Goodman MD Acct: [id number] Unit: [id number] AGE: 63 Location: [place] [address] Re06/13/18 SEX: M Status: ADM IN SPEC: [id number] YVONNE: 06/11/18-1007 [facility] DR: Raúl Rouse MD REQ: [id number] RECD: 06/11/182 STATUS: RODO BARROS DR: Sanjuana Oneill MD _ SOURCE: URINE SPDESC: ORDERED: Urine Culture Procedure Result Reported Site Urine Culture Final 06/14/18- 0832 ML Organism 1 ESCHERICHIA COLI [place] Count 75-100,000 (Many) CFU/ML Organism 2 ENTEROCOCCUS FAECALIS [place] Count 10-25,000 (Moderate) CFU/ML 1. ESCHERICHIA COLI [facility]. RX --------- ------ Ampicillin >=32 R Cefazolin <=4 S Cefepime <=1 S Ceftriaxone <=1 S Ciprofloxacin 0.5 S Gentamicin >=16 R Levofloxacin 1 S Meropenem <=0.25 S Nitrofurantoin <=16 S Tetracycline >=16 R Pipercillin/Tazobactam <=4 S Trimethoprim/Sulfamethoxazole >=320 R Amoxicillin/Clavulanic Acid 8 S Aztreonam <=1 S 2. ENTEROCOCCUS FAECALIS [facility]. RX --------- ------ Ampicillin <=2 S Penicillin 4 S Ciprofloxacin 1 S Gentamicin High Level S CONTINUED ON NEXT PAGE DEPARTMENT OF PATHOLOGY, [address] [place] [address] Wilner Payne M.D. Director [facility] # [id number] Patient: CLAIRE WARNER [id number] (Continued) Specimen: [id number] Collected: 06/11/18-1007 Received: 06/11/18-101 (Continued) Procedure Result Reported Site Urine Culture Final (continued) 06/14/18831 2. ENTEROCOCCUS FAECALIS (continued) [facility]. RX --------- ------ Levofloxacin 1 S Linezolid 2 S Nitrofurantoin <=16 S * Quinupristin/Dalfopristin 8 R * Streptomycin High Level S Tetracycline >=16 R Tigecycline <=0.12 S Vancomycin 2 S Imipenem-Deduced S * Ampicillin/Sulbactam-Deduced S * These antibiotics are not available in the [facility] Formulary Contact the Microbiology Department for any additional antibiotic reporting. Contact the Microbiology Department for any additional antibiotic reporting. * ML - Main Lab . END OF REPORT DEPARTMENT OF PATHOLOGY, [address] [place] [address] Wilner Payne M.D. Director [facility] # [id number] 6 Critical Result LACT:3.0 Called to [id number] at: 09:20:26 by:[id number] Read back by:[id number] [facility] Severe Sepsis and Septic Shock Management Bundle Measure requires all lactic acids initially measuring >2.0 mmol/L be repeated. 7 Because ethnic data is not always readily [...] 15-29 5 Kidney failure <15 (or dialysis) 8 Result TnIDx:0.04 Called to [id number] at: 09:22:47 by:[id number] Read back by: [id number] Troponin-I testing on Plasma Separator Tubes (PST) has a known false positive rate of 0.20-0.40%. All positive troponins reflex immediate secondary confirmatory testing. 9 No interferon-gamma response to M. tuberculosis antigens [...] DM et. al. Clin. Infect. Dis. 2017;64(2):111-115]. 10 Test Performed by: [facility] [address] [place] [address] 11 Because ethnic data is not always readily [...] 15-29 5 Kidney failure <15 (or dialysis) 12 FASTING 13 Desirable: <150 Borderline High: 150-199 High: 200-499 Very High: >500 14 Desirable: <200 Borderline High: 200-239 High: >239 15 Low: <40 Desirable: 40-60 High: >60 16 Desirable: <100 Near Optimal: 100-129 Borderline High: 130-159 High: 160-189 Very High: >189 Procedures Date Code Description Status 10/01/2018 00717 Sleep Study Unattended,HRT Rate,Oxygen Sat,Resp Completed Effort/Airflow 08/29/2018 20831 Treadmill Interp/Report Only Completed 08/29/2018 16879 Stress Test Supervsn W/Out I/R Completed 08/14/2018 48076 ECHO Stress Test Incl Perf Contiuous ekg Monitoring Completed W/Phys Superv 07/15/2018 63646 Holter Monitor Review (24 hr) review & interp only Completed 07/12/2018 88437 ECG Monitor/Recording W/Visual Superimposition Scanning Completed 07/10/2018 66924 EKG Tracing & Interpretation Completed 06/11/2018 29094 ECHO Transthorasic Realtime 2D W Doppler & Color Flow Completed Hosp 06/05/2016 32182420 Colonoscopy Completed Encounters Type Date Location Provider Dx Diagnosis Office Visit 09/11/2018 [facility] Qutaybkeyona S. 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, unspecified site Office Visit 07/16/2018 1:00p [facility] G47.419 Narcolepsy [facility] Kuldeep without [facility] cataplexy G47.9 Sleep disorder, unspecified R53.83 Other fatigue Office Visit 07/10/2018 [place] Max Melendez R00.0 Tachycardia, 2:30p Cardiology Kieran Nolen unspecified I10 Essential (primary) hypertension R94.31 Abnormal electrocardiogram [ECG] [EKG] I45.10 Unspecified right bundle-branch block E66.9 Obesity, unspecified E78.2 Mixed hyperlipidemia I45.2 Bifascicular block Office Visit 06/29/2018 1:10p [facility] Internal Khari Parra G47.429 Narcolepsy in Elise Lozano M.D.,FACP conditions [address] classified elsewhere w/o cataplexy B02.22 Postherpetic trigeminal neuralgia Office Visit 06/20/2018 11:20a [facility] Internal Sanjuana Oneill, B02.29 Other postherpetic Medicine - MD nervous system [address] involvement Z79.01 halfway (current) use of anticoagulants T40.2x5D Adverse effect of other opioids, subsequent encounter R33.9 Retention of urine, unspecified R00.0 Tachycardia, unspecified Office Visit 06/14/2018 [facility] S37.39xA Other injury of 1:11p Assoc,pc [facility] Eric, urethra, Hospitalists PRIMARY THERAPIST initial encounter I47.1 Supraventricular tachycardia N39.0 Urinary tract infection, site not specified B96.20 Unsp Escherichia coli as the cause of diseases classd elswhr Office Visit 06/13/2018 [facility] S37.39xA Other injury of 1:11p Assoc,pc [facility] Dottheodora, urethra, Hospitalists PRIMARY THERAPIST initial encounter N39.0 Urinary tract infection, site not specified B96.20 Unsp Escherichia coli as the cause of diseases classd elswhr R10.9 Unspecified abdominal pain Office Visit 06/11/2018 1:10p [facility] Madalyn Carson, R53.1 Weakness Assoc, Hospitalists PRIMARY THERAPIST R42 Dizziness and giddiness S37.39xA Other injury of urethra, initial encounter R00.0 Tachycardia, unspecified R50.9 Fever, unspecified Office Visit 06/01/2018 [facility] Internal Khari Parra J47.9 Bronchiectasis, 1:40p Elise Lozano M.D.,FACP uncomplicated [address] I82.411 Acute embolism and thrombosis of right femoral vein Z79.01 halfway (current) use of anticoagulants Office Visit 05/17/2018 8:40a [facility] Internal Sanjuana Oneill, B02.9 [place] without Medicine - MD complications [address] R05 Cough B02.29 Other postherpetic nervous system involvement R91.1 Solitary pulmonary nodule Office Visit 05/09/2018 3:20p [facility] Internal Medicine - Jenaro Ramírez, TRANSFER DRIVER R[address] B02.9 [place] without complications Office Visit 03/14/2018 [facility] Internal Khari Parra M51.16 Intervertebral disc 10:40a Elise Lozano M.D.,FAC disorders w [address] radiculopathy, lumbar region I82.411 Acute embolism and thrombosis of right femoral vein Z79.01 halfway (current) use of anticoagulants A69.20 Lyme disease, unspecified Z23 Encounter for immunization Office Visit 12/08/2017 [facility] Internal Adolfo E78.2 Mixed hyperlipidemia 8:20a Elise Wooten M.D. 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 J44.9 Chronic obstructive pulmonary disease, unspecified I82.411 Acute embolism and thrombosis of right femoral vein J30.9 Allergic rhinitis, unspecified Office Visit 09/26/2017 10:20a [facility] Internal Adolfo Wooten, J06.9 Acute upper Medicine - DiamanteDAlonso respiratory [address] infection, unspecified E78.2 Mixed hyperlipidemia K21.9 Gastro-esophageal reflux disease without esophagitis G47.429 Narcolepsy in conditions classified elsewhere w/o cataplexy J44.9 Chronic obstructive pulmonary disease, unspecified E66.9 Obesity, unspecified Plan of Treatment Future Appointment(s):11/05/2018 9:00 am - Ange Littlejohn DNP, RN, TRANSFER DRIVER-BC at [facility]10/16/2018 - Sanjuana Oneill MDI10 Essential ( primary) hypertensionNew Medication:Losartan Potassium 50 mg - 1 by mouth every dayNew Labs:Comp Metabolic Panel, Ordered: 10/16/18TSH (Thyroid Stim Horm), Ordered: 10/16/18Urinalysis Profile, Ordered: 10/16/18Comments:Please start taking the prescribed medication daily at the same time. Even if you feel fine. We will recheck your blood pressure 3 months, and at that time he should be seen for a a full physical exam. Please make sure to get these labs done before that visit.E78.2 Mixed hyperlipidemiaNew Labs:Lipid Profile (Trig/Chol/ HDL), Ordered: 10/16/18Z79.01 halfway (current) use of [id number] Chronic obstructive pulmonary disease, unspecifiedNew Medication:Guaifenesin 400 mg - one po tid
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
[2018-11-08 12:49] LABS: Hepatitis C Antibody Negative (Negative)
[2018-11-08 12:58] VITALS: BP 119/86
== END 2018-11-08 12:58 | disposition home or self-care (01) ==
LOC: ED 08:18
DX: S30.1XXA Contusion of abdominal wall, initial encounter (principal); V49.9XXA Car occupant (driver) (passenger) injured in unspecified traffic accident, initial encounter; Y92.410 Unspecified street and highway as the place of occurrence of the external cause; I10 Essential (primary) hypertension; I25.10 Atherosclerotic heart disease of native coronary artery without angina pectoris; E78.00 Pure hypercholesterolemia, unspecified; J44.9 Chronic obstructive pulmonary disease, unspecified; K21.9 Gastro-esophageal reflux disease without esophagitis; K57.92 Diverticulitis of intestine, part unspecified, without perforation or abscess without bleeding; F41.9 Anxiety disorder, unspecified; F32.9 Major depressive disorder, single episode, unspecified; M19.90 Unspecified osteoarthritis, unspecified site; Z88.8 Allergy status to other drugs, medicaments and biological substances; Z95.5 Presence of coronary angioplasty implant and graft
CPT/HCPCS: 36415; 72192; 86803; 99282; A9270-GY

== ENCOUNTER 2021-04-07 14:03 | Observation (INO) ==
[2021-04-07 17:31] LABS: ABS Lymphocytes 0.8 10^3/ul (1.0-4.8); ABS Monocytes 0.9 10^3/ul (0-0.8); ABS Neutrophils 5.7 10^3/ul (1.5-7.7); Eosinophil % 0.2 %; Hematocrit 44 % (42-52); Hemoglobin 15.2 g/dL (14.0-18.0); Lymphocyte % 11.2 %; Mean Corpuscular HGB Conc 35 g/dL (31-36); Mean Corpuscular Hemoglobin 33 pg (27-31); Mean Corpuscular Volume 94 fL (80-94); Mean Platelet Volume 7.9 fL (7.4-10.4); Platelet Count 170 10^3/uL (150-450); Red Blood Count 4.68 10^6 /uL (4.18-5.48); Red Cell Distribution Width 14 % (10-15); White Blood Count 7.5 10^3/uL (3.5-10.8)
[2021-04-07 17:37] LABS: Rapid COVID-19 Molecular Detected (Undetected)
[2021-04-07 17:51] LABS: ALT 25 U/L (7-52); Albumin 3.7 g/dL (3.2-5.2); Albumin/Globulin Ratio 1.1 (1-3); Alkaline Phosphatase 72 U/L (35-149); Blood Urea Nitrogen 23 mg/dL (6-24); CO2 Carbon Dioxide 29 mmol/L (22-32); Chloride 98 mmol/L (101-111); Globulin 3.3 g/dL (2-4); Glucose 112 mg/dL (70-100); Sodium 136 mmol/L (135-145)
[2021-04-07 17:56] LABS: Anion Gap 9 mmol/L (2-11)
[2021-04-07 19:12] LABS: INR 4.99 (0.86-1.15)
[2021-04-07 19:16] LABS: AST Redraw 25 U/L (13-39); Potassium Redraw 3.3 mmol/L (3.5-5.0)
[2021-04-07] MEDS ORDERED: Albuterol HFA INHALER 8 gm MDI INH PRN (19:52)
[2021-04-07] MEDS ORDERED: Potassium Chlor 10 meq TAB PO ONE (19:54)
[2021-04-07] MEDS ORDERED: NS 0.9% 1000 ml BAG 1,000 ML IV ONE (21:45)
[2021-04-08 03:19] LABS: LDH 225 U/L (140-271)
[2021-04-08 03:21] LABS: C Reactive Protein 78.77 mg/L (<8.01); Creatine Kinase 89 U/L (10-223)
[2021-04-08 03:30] LABS: Troponin I 0.04 ng/mL (<0.03)
[2021-04-08 04:06] LABS: INR 4.93 (0.86-1.15)
[2021-04-08 04:17] LABS: Troponin I 0.03 ng/mL (<0.03)
[2021-04-08 08:09] LABS: Magnesium 1.7 mg/dL (1.9-2.7)
[2021-04-08] MEDS ORDERED: Aspirin EC 81 mg TAB.EC (enteric coated) PO SCH (09:00)
[2021-04-08 11:51] VITALS: BP 108/79
[2021-04-08] MEDS ORDERED: Flu vaccine *QUAD* 2021-22* 0.5 ML SYRINGE IM ONE (14:00)
[2021-04-08] MEDS ORDERED: Warfarin per PHARMACY **NOTE FOLLOW UP SCH (17:00)
[2021-04-08] MEDS ORDERED: Warfarin DAILY REMINDER **NOTE FOLLOW UP SCH (17:00)
[2021-04-08] MEDS ORDERED: Warfarin - No Order Today **NOTE FOLLOW UP ONE (17:00)
== END 2021-04-08 14:35 | disposition home or self-care (01) ==
LOC: ED 14:50 → SUATTDRO 19:39 → MED 19:39 → INTOOBSV 19:39 → MED 23:39
PROVIDERS: ADMIT Internal Medicine; ATTEND Internal Medicine